=== PATIENT | female | born 1955 | race Caucasian/White ===

== ENCOUNTER 2020-02-28 15:48 | Emergency (ER) | payer MEDICARE ==
--- NOTE | 2020-02-28 16:07 | ERPHSYRPT ---
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 denies hitting head or LOC. no blood thinners. noted abrasions to L elbow and L knee that are not bleeding. rates 1/10 pain when ambu lating. ambulates with limp to room. A&Ox4. Allergies/Adverse Reactions: Penicillins Allergy (Mild, Verified 02/28/20 16:05) Rash Home Medications: Losartan/Hydrochlorothiazide [Losartan-Hctz 50-12.5 mg Tab] 1 each PO DAILY 11/22/19 [History] Levothyroxine Sodium [Synthroid] 25 mcg PO DAILY 01/08/20 [History] Hx Tetanus, Diphtheria Vaccination/Date Given: No Hx Influenza Vaccination/Date Given: No Hx Pneumococcal Vaccination/Date Given: No Immunizations Up to Date: No Travel Risk - International Travel Have you traveled outside of the country in past 3 weeks: No - Coronavirus Screening Are you exhibiting any of the following symptoms?: No Close contact with a COVID-19 positive Pt in past 14-21 Days: No - Past Medical History Pertinent Past Medical History: Yes Neurological History: No Pertinent History ENT History: No Pertinent History Cardiac History: Hypertension Respiratory History: No Pertinent History Endocrine Medical History: Diabetes Type II, Other Musculoskeletal History: No Pertinent History GI Medical History: Hernia History: No Pertinent History Psycho-Social History: No Pertinent History Female Reproductive Disorders: No Pertinent History Other Medical History: 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 Pt states she is "prediabetic" states a hx of GERD but currently doesn't have any difficulty and not taking any medications. - Past Surgical History Past Surgical History: Yes Neuro Surgical History: No Pertinent History Cardiac: No Pertinent History Respiratory: No Pertinent History Gastrointestinal: No Pertinent History Genitourinary: No Pertinent History Musculoskeletal: Other Female Surgical History: Hysterectomy, Tubal Ligation Other Surgical History: states she has had "fatty tumors" removed from neck and back. Right foot surgery. Right side breast biopsy AUGUST 2019. - Social History Smoking Status: Never smoker Exposure to second hand smoke: No Drug Use: none Patient Lives Alone: Yes - Female History Hx Now: No - Nursing Vital Signs Nursing Vital Signs: Initial Vital Signs Temperature 98.1 F 02/28/20 15:57 Pulse Rate 99 H 09/30/20 15:57 Respiratory Rate 18 02/28/20 15:57 Blood Pressure 163/95 02/28/20 15:57 O2 Sat by Pulse Oximetry 99 02/28/20 15:57 Pain Scale Pain Intensity 1 - Physical Exam SpO2: 99 Ordered Tests: Active Orders 24 hr Category Date Time Status Jair Bandage Application -[facility] STAT Care 02/28/20 17:05 Active Wound Care STAT Care 02/28/20 17:01 Active KNEE (3 VIEWS) Stat Exams 02/28/20 16:35 Completed - Departure Departure Disposition: Home Clinical Impression: Contusion, knee Qualifiers: Encounter type: initial encounter Laterality: left Qualified Code(s): S80.02XA - Contusion of left knee, initial encounter Condition: Stable Critical Care Time: No Referrals: EILEEN HASSAN MD [Primary Care Provider] - Instructions: Contusion (DC) Additional Instructions: Jair wrap for knee. Elevate, ice, pain med. as needed, activity as tolerated, recheck if not better.
--- NOTE | 2020-02-28 16:57 | XRAY ---
Indication: Pain following fall. Comparison: None 3 view right knee demonstrates mild anterior soft tissue swelling/laceration, mild osteopenia, mild/moderate tricompartmental degenerative changes greatest medial compartment, and minimal vascular calcifications. No other bony, articular, or soft tissue abnormalities.
[2020-02-28 17:12] VITALS: BP 152/85; PULSE 92
[2020-02-28 17:14] VITALS: O2SAT 99
== END 2020-02-28 17:23 | disposition home or self-care (01) ==
LOC: ED 15:48
DX: S80.02XA Contusion of left knee, initial encounter (principal); M25.562 Pain in left knee; M25.522 Pain in left elbow; S50.312A Abrasion of left elbow, initial encounter; S80.212A Abrasion, left knee, initial encounter; X58.XXXA Exposure to other specified factors, initial encounter; Y93.9 Activity, unspecified; Z79.899 Other long term (current) drug therapy; E11.9 Type 2 diabetes mellitus without complications; K21.9 Gastro-esophageal reflux disease without esophagitis
CPT/HCPCS: 73562; 99284

== ENCOUNTER 2021-04-20 14:35 | Emergency (ER) | payer MEDICARE ==
--- NOTE | 2021-04-20 15:07 | ERPHSYRPT ---
- History of Present Illness Time Seen by Provider: 04/20/21 14:37 Source: patient Exam Limitations: no limitations Patient Subjective Stated Complaint: R foot pain Triage Nursing Assessment: pt to ED c/o R foot pain r/t trip in her yard a couple days ago. states she did not feel pain at that time but the next day pain began. rates 10/10 at standing position and when weight bearing. denies pain at rest. has had surgery on this foot in 1998 and reports some intermittent problems with it since then. Physician History: 65 years old morbidly obese female presented in the ER with chief complaint of right foot pain sudden onset after she accidentally twisted while walking and later on started to have swelling and pain on the medial aspect of proximal foot making it difficult to ambulate. Moderate intensity sharp pain, partial relief with taking ibuprofen. Does report having surgical procedure done in the same foot long time ago. No injury anywhere else. No numbness tingling in the toes. No ankle pain. Method of Injury: twisted Occurred: yesterday Quality: sharpness Severity of Pain-Max: moderate Severity of Pain-Current: moderate Lower Extremities Pain: foot: right Modifying Factors: Improves With: immobilization. Worsens With: movement Associated Symptoms: unable to bear weight Allergies/Adverse Reactions: Penicillins Allergy (Mild, Verified 04/20/21 14:45) Rash Home Medications: Losartan/Hydrochlorothiazide [Losartan-Hctz 50-12.5 mg Tab] 1 each PO DAILY 11/22/19 [History] Levothyroxine Sodium [Synthroid] 25 mcg PO DAILY 01/08/20 [History] Hx Tetanus, Diphtheria Vaccination/Date Given: Yes Hx Influenza Vaccination/Date Given: No Hx Pneumococcal Vaccination/Date Given: No Immunizations Up to Date: No Travel Risk - International Travel Have you traveled outside of the country in past 3 weeks: No - Coronavirus Screening Are you exhibiting any of the following symptoms?: No Close contact with a COVID-19 positive Pt in past 14-21 Days: No - Vaccine Status Have you recieved a Covid-19 vaccination: No - Review of Systems Constitutional: No Symptoms Respiratory: No Symptoms Cardiac: No Symptoms Abdominal/Gastrointestinal: No Symptoms Genitourinary Symptoms: No Symptoms Musculoskeletal: Injury, Joint Pain Skin: No Symptoms Neurological: No Symptoms Psychological: No Symptoms Endocrine: No Symptoms - Past Medical History Pertinent Past Medical History: Yes Neurological History: No Pertinent History ENT History: No Pertinent History Cardiac History: Hypertension Respiratory History: No Pertinent History Endocrine Medical History: Diabetes Type II, Other Musculoskeletal History: No Pertinent History GI Medical History: Hernia History: No Pertinent History Psycho-Social History: No Pertinent History Female Reproductive Disorders: No Pertinent History Other Medical History: 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 Pt states she is "prediabetic" states a hx of GERD but currently doesn't have any difficulty and not taking any medications. - Past Surgical History Past Surgical History: Yes Neuro Surgical History: No Pertinent History Cardiac: No Pertinent History Respiratory: No Pertinent History Gastrointestinal: No Pertinent History Genitourinary: No Pertinent History Musculoskeletal: Other Female Surgical History: Hysterectomy, Tubal Ligation Other Surgical History: states she has had "fatty tumors" removed from neck and back. Right foot surgery. Right side breast biopsy AUGUST 2019. - Social History Smoking Status: Never smoker Exposure to second hand smoke: No Drug Use: none Patient Lives Alone: Yes - Female History Hx Now: No - Nursing Vital Signs Nursing Vital Signs: Initial Vital Signs Temperature 97.7 F 04/20/21 14:41 Pulse Rate 73 04/20/21 14:41 Respiratory Rate 19 04/20/21 14:41 O2 Sat by Pulse Oximetry 96 04/20/21 14:41 Pain Scale Pain Intensity 0 - Physical Exam General Appearance: no apparent distress, alert Neck Exam: normal inspection, full range of motion Cardiovascular/Respiratory Exam: normal breath sounds, regular rate/rhythm Legs Exam: bilateral leg: non-tender, normal inspection, normal range of motion, no evidence of injury Knees Exam: bilateral knee: non-tender, normal inspection, normal range of motion Ankle Exam: bilateral ankle: non-tender, normal inspection, normal range of motion Foot Exam: right foot: bone tenderness (Right medial hindfoot with soft tissue swelling and tenderness. No significant medial malleolar tenderness), limited range of motion, pain, soft tissue tenderness, swelling, left foot: non-tender, normal inspection, normal range of motion, no evidence of injury Neuro/Tendon Exam: normal sensation, normal motor functions Mental Status Exam: alert, oriented x 3, cooperative Skin Exam: normal color SpO2 Interpretation: normal SpO2: 96 O2 Delivery: Room Air Ordered Tests: Active Orders 24 hr Category Date Time Status FOOT (MINIMUM 3 VIEWS) Stat Exams 04/20/21 Ordered - Progress Progress: unchanged Progress Note: 04/20/21 she is offered pain medications which she refused. X-rays did not reveal any obvious fracture dislocation reviewed by me, official report is pending. Placed in walking boot, weightbearing as tolerated, Tylenol as needed and outpatient podiatry follow-up. Counseled pt/family regarding: diagnosis, need for follow-up, rad results - Departure Departure Disposition: Home Clinical Impression: Sprain of foot, right Qualifiers: Encounter type: initial encounter Qualified Code(s): S93.601A - Unspecified sprain of right foot, initial encounter Condition: Stable Critical Care Time: No Referrals: EILEEN HASSAN MD [Primary Care Provider] - Follow Up with PCP/3 days HARDY BURTON DPM [ACTIVE STAFF] - Follow up/PCP as directed (Call tomorrow for appointment for reevaluation) Instructions: Foot Sprain (DC) Additional Instructions: Keep it elevated, weightbearing only as tolerated. Intermittent ice. Follow-up with podiatry for reevaluation tomorrow. Take Tylenol as needed for pain.
--- NOTE | 2021-04-20 19:00 | XRAY ---
Indication: Pain following fall. Comparison: None 3 nonweightbearing views right foot demonstrate mild osteopenia, old 1st metatarsal bunionectomy with K wire, tiny heel spurs, mild medial ankle soft tissue swelling, and tiny lower leg vascular calcifications. No other bony, articular, or soft tissue abnormalities.
[2021-04-21 17:08] VITALS: PULSE 73; O2SAT 96
== END 2021-04-20 16:25 | disposition home or self-care (01) ==
LOC: ED 14:35
DX: S93.601A Unspecified sprain of right foot, initial encounter (principal); X50.1XXA Overexertion from prolonged static or awkward postures, initial encounter; Y92.007 Garden or yard of unspecified non-institutional (private) residence as the place of occurrence of the external cause; E66.01 Morbid (severe) obesity due to excess calories; I10 Essential (primary) hypertension; E11.8 Type 2 diabetes mellitus with unspecified complications
CPT/HCPCS: 73630; 99283

== ENCOUNTER 2022-12-29 23:47 | Emergency (ER) | payer MEDICARE ==
--- NOTE | 2022-12-30 00:25 | ERPHSYRPT ---
- History of Present Illness Time Seen by Provider: 12/30/22 00:23 Source: patient Exam Limitations: no limitations Patient Subjective Stated Complaint: pt states "I feel shakey and I don't feel good since wednesday." Triage Nursing Assessment: pt ambulatory to bed by self, pt alert and oriented x3, skin pwd, pt c/o generalized complaints. pt states she feel shaky since wednesday and believes her fsbs is high. pt took fsbs at home and was 144 and fsbs in ER during triage was 124. pt has hx of HTN and states she is prediabetic. Physician History: Patient is a 67-year-old female presents to our ED for evaluation of feeling tremulous. Patient states she feels as though "my body is shaking on the inside". Patient states she felt similarly when her thyroid levels were abnormal. Patient has history of hypothyroidism. Patient was started on Synthroid. Patient was found to be supratherapeutic on Synthroid. Synthroid has been discontinued for approximately 3 months at this point per patient. Patient denies pain. No chest pain or shortness of breath no nausea vomiting or diaphoresis. Symptoms are mild to moderate in intensity. No specific worsening improving factors. Daughter at bedside. They voiced no other complaints or concerns at this time. Portions of this note were created with voice recognition technology. There may be grammatical, spelling, punctuation or sound alike errors Timing/Duration: day(s) (2 days) Severity: moderate Modifying Factors: Improves With: nothing Associated Symptoms: denies symptoms Allergies/Adverse Reactions: lisinopril Allergy (Mild, Verified 12/30/22 00:22) Penicillins Allergy (Mild, Verified 04/20/21 14:45) Rash Home Medications: Losartan/Hydrochlorothiazide [Losartan-Hctz 50-12.5 mg Tab] 1 each PO DAILY 11/22/19 [History] Hx Tetanus, Diphtheria Vaccination/Date Given: No Hx Influenza Vaccination/Date Given: No Hx Pneumococcal Vaccination/Date Given: No Immunizations Up to Date: No Travel Risk - International Travel Have you traveled outside of the country in past 3 weeks: No - Coronavirus Screening Are you exhibiting any of the following symptoms?: No Close contact with a COVID-19 positive Pt in past 14-21 Days: No - Vaccine Status Have you recieved a Covid-19 vaccination: No - Review of Systems Constitutional: No Symptoms, No Fever, No Chills Eyes: No Symptoms Ears, Nose, & Throat: No Symptoms Respiratory: No Symptoms, No Cough, No Dyspnea Cardiac: No Symptoms, No Chest Pain, No Edema, No Syncope Abdominal/Gastrointestinal: No Symptoms, No Abdominal Pain, No Nausea, No Vomiting, No Diarrhea Genitourinary Symptoms: No Symptoms, No Dysuria Musculoskeletal: No Symptoms, No Back Pain, No Neck Pain Skin: No Symptoms, No Rash Neurological: No Symptoms, No Dizziness, No Focal Weakness, No Sensory Changes Psychological: No Symptoms Endocrine: No Symptoms Hematologic/Lymphatic: No Symptoms Immunological/Allergic: No Symptoms All Other Systems: Reviewed and Negative - Past Medical History Pertinent Past Medical History: Yes Neurological History: No Pertinent History ENT History: No Pertinent History Cardiac History: Hypertension Respiratory History: No Pertinent History Endocrine Medical History: Diabetes Type II, Other Musculoskeletal History: No Pertinent History GI Medical History: Hernia History: No Pertinent History Psycho-Social History: No Pertinent History Female Reproductive Disorders: No Pertinent History Other Medical History: 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 Pt states she is "prediabetic" states a hx of GERD but currently doesn't have any difficulty and not taking any medications. - Past Surgical History Past Surgical History: Yes Neuro Surgical History: No Pertinent History Cardiac: No Pertinent History Respiratory: No Pertinent History Gastrointestinal: No Pertinent History Genitourinary: No Pertinent History Musculoskeletal: Orthopedic Surgery, Other Female Surgical History: Hysterectomy, Tubal Ligation Other Surgical History: states she has had "fatty tumors" removed from neck and back. Right foot surgery. Right side breast biopsy AUGUST 2019. - Social History Smoking Status: Former smoker Exposure to second hand smoke: No Drug Use: none Patient Lives Alone: Yes - Nursing Vital Signs Nursing Vital Signs: Initial Vital Signs Temperature 97.3 F 12/30/22 00:12 Pulse Rate 101 H 12/30/22 00:12 Respiratory Rate 18 12/30/22 00:12 Blood Pressure 164/85 12/30/22 00:12 O2 Sat by Pulse Oximetry 95 12/30/22 00:12 Pain Scale Pain Intensity 0 - Physical Exam General Appearance: no apparent distress, alert Eye Exam: PERRL/EOMI, eyes nml inspection Ears, Nose, Throat Exam: normal ENT inspection, TMs normal, pharynx normal, moist mucous membranes Neck Exam: normal inspection, non-tender, supple, full range of motion Respiratory Exam: normal breath sounds, lungs clear, airway intact, No respiratory distress Cardiovascular Exam: regular rate/rhythm, normal heart sounds, normal peripheral pulses Gastrointestinal/Abdomen Exam: soft, normal bowel sounds, No tenderness, No mass Back Exam: normal inspection, normal range of motion, No CVA tenderness, No vertebral tenderness Extremity Exam: normal inspection, normal range of motion, pelvis stable Neurologic Exam: alert, oriented x 3, cooperative, normal mood/affect, nml cerebellar function, nml station & gait, sensation nml, No motor deficits Skin Exam: normal color, warm, dry, No rash Lymphatic Exam: No adenopathy SpO2 Interpretation: normal SpO2: 95 O2 Delivery: Room Air - Course Nursing assessment & vital signs reviewed: Yes Ordered Tests: Active Orders 24 hr Category Date Time Status CBC W DIFF Stat Lab 12/30/22 00:35 Completed CMP Stat Lab 12/30/22 00:35 Completed FREE TRIODOTHYRONINE Stat Lab 12/30/22 00:00 Completed POCT GLUCOSE Stat Lab 12/30/22 00:05 Completed TROPONIN Q4H Lab 12/30/22 00:35 Completed TROPONIN Q4H Lab 12/30/22 05:04 Completed TROPONIN Q4H Lab 12/30/22 08:30 Ordered TSH [TSH, 3RD Generation] Stat Lab 12/30/22 00:35 Completed UA W/RFX UR CULTURE Stat Lab 12/30/22 00:19 Completed Lab/Rad Data: Laboratory Result Diagrams 12/30/22 00:35 12/30/22 00:35 Laboratory Results 12/30/22 12/30/22 12/30/22 Range/Units 05:04 00:35 00:35 WBC (4.0-10.5) x10^3/uL RBC (4.1-5.4) x10^6/uL Hgb (12.0-16.0) g/dL Hct (35-47) % MCV (78-100) fL MCH (26-32) pg MCHC (32-36) g/dL RDW (11.5-14.0) % Plt Count (150-450) x10^3/uL MPV (7.5-11.0) fL Gran % (36.0-66.0) % Immature Gran % (Auto) (0.00-0.4) % Nucleat RBC Rel Count (0.00-0.1) % Eos # (Auto) (0-0.5) x10^3/uL Immature Gran # (Auto) (0.00-0.03) x10^3u/L Absolute Lymphs (auto) (1.0-4.6) x10^3/uL Absolute Monos (auto) (0.0-1.3) x10^3/uL Absolute Nucleated RBC (0.00-0.01) x10^3u/L Lymphocytes % (24.0-44.0) % Monocytes % (0.0-12.0) % Eosinophils % (0.00-5.0) % Basophils % (0.0-0.4) % Absolute Granulocytes (1.4-6.9) x10^3/uL Basophils # (0-0.4) x10^3/uL Sodium (137-145) mmol/L Potassium (3.5-5.1) mmol/L Chloride (98-107) mmol/L Carbon Dioxide (22-30) mmol/L Anion Gap (5-15) MEQ/L BUN (7-17) mg/dL Creatinine (0.52-1.04) mg/dL Estimated GFR ML/MIN Glucose (74-106) mg/dL POC Glucometer (74 to 106) mg/dL Calcium (8.4-10.2) mg/dL Total Bilirubin (0.2-1.3) mg/dL AST (14-36) U/L ALT (0-35) U/L Alkaline Phosphatase (38-126) U/L Troponin I < 0.012 < 0.012 (0.000-0.034) ng/mL Serum Total Protein (6.3-8.2) g/dL Albumin (3.5-5.0) g/dL Free T4 (0.78-2.19) ng/dL Free T3 pg/mL (2.77-5.27) pg/mL TSH 3rd Generation < 0.015 L (0.47-4.68) mIU/L Urine Color (Yellow) Urine Appearance (Clear) Urine pH (4.6-8.0) Ur Specific Ventress (1.005-1.030) Urine Protein (Negative) Urine Glucose (UA) (Negative) mg/dL Urine Ketones (Negative) Urine Blood (Negative) Urine Nitrite (Negative) Urine Bilirubin (Negative) Urine Urobilinogen (0.2) mg/dL Ur Leukocyte Esterase (Negative) U Hyaline Cast (Auto) (0-2) /LPF Urine Microscopic RBC (0-5) /HPF Urine Microscopic WBC (0-5) /HPF Ur Epithelial Cells (None Seen) /HPF Urine Bacteria (None Seen) /HPF Urine Culture Reflexed (NO) 12/30/22 12/30/22 12/30/22 Range/Units 00:35 00:35 00:19 WBC 5.2 (4.0-10.5) x10^3/uL RBC 4.82 (4.1-5.4) x10^6/uL Hgb 13.6 (12.0-16.0) g/dL Hct 42.7 (35-47) % MCV 88.6 (78-100) fL MCH 28.2 (26-32) pg MCHC 31.9 L (32-36) g/dL RDW 12.8 (11.5-14.0) % Plt Count 181 (150-450) x10^3/uL MPV 10.3 (7.5-11.0) fL Gran % 56.7 (36.0-66.0) % Immature Gran % (Auto) 0.2 (0.00-0.4) % Nucleat RBC Rel Count 0.0 (0.00-0.1) % Eos # (Auto) 0.15 (0-0.5) x10^3/uL Immature Gran # (Auto) 0.01 (0.00-0.03) x10^3u/L Absolute Lymphs (auto) 1.59 (1.0-4.6) x10^3/uL Absolute Monos (auto) 0.46 (0.0-1.3) x10^3/uL Absolute Nucleated RBC 0.00 (0.00-0.01) x10^3u/L Lymphocytes % 30.9 (24.0-44.0) % Monocytes % 8.9 (0.0-12.0) % Eosinophils % 2.9 (0.00-5.0) % Basophils % 0.4 (0.0-0.4) % Absolute Granulocytes 2.92 (1.4-6.9) x10^3/uL Basophils # 0.02 (0-0.4) x10^3/uL Sodium 139 (137-145) mmol/L Potassium 3.7 (3.5-5.1) mmol/L Chloride 104 (98-107) mmol/L Carbon Dioxide 27 (22-30) mmol/L Anion Gap 11.5 (5-15) MEQ/L BUN 18 H (7-17) mg/dL Creatinine 0.70 (0.52-1.04) mg/dL Estimated GFR > 60.0 ML/MIN Glucose 124 H (74-106) mg/dL POC Glucometer (74 to 106) mg/dL Calcium 9.1 (8.4-10.2) mg/dL Total Bilirubin 0.40 (0.2-1.3) mg/dL AST 22 (14-36) U/L ALT 24 (0-35) U/L Alkaline Phosphatase 123 (38-126) U/L Troponin I (0.000-0.034) ng/mL Serum Total Protein 6.7 (6.3-8.2) g/dL Albumin 3.8 (3.5-5.0) g/dL Free T4 (0.78-2.19) ng/dL Free T3 pg/mL (2.77-5.27) pg/mL TSH 3rd Generation (0.47-4.68) mIU/L Urine Color Yellow (Yellow) Urine Appearance Clear (Clear) Urine pH 6.0 (4.6-8.0) Ur Specific Ventress <=1.005 (1.005-1.030) Urine Protein Negative (Negative) Urine Glucose (UA) Negative (Negative) mg/dL Urine Ketones Negative (Negative) Urine Blood Negative (Negative) Urine Nitrite Negative (Negative) Urine Bilirubin Negative (Negative) Urine Urobilinogen 0.2 (0.2) mg/dL Ur Leukocyte Esterase Small A (Negative) U Hyaline Cast (Auto) NONE SEEN (0-2) /LPF Urine Microscopic RBC 0-2 (0-5) /HPF Urine Microscopic WBC 0-2 (0-5) /HPF Ur Epithelial Cells None Seen (None Seen) /HPF Urine Bacteria None Seen (None Seen) /HPF Urine Culture Reflexed NO (NO) 0812/30/22 12/30/22 Range/Units 00:05 00:00 00:00 WBC (4.0-10.5) x10^3/uL RBC (4.1-5.4) x10^6/uL Hgb (12.0-16.0) g/dL Hct (35-47) % MCV (78-100) fL MCH (26-32) pg MCHC (32-36) g/dL RDW (11.5-14.0) % Plt Count (150-450) x10^3/uL MPV (7.5-11.0) fL Gran % (36.0-66.0) % Immature Gran % (Auto) (0.00-0.4) % Nucleat RBC Rel Count (0.00-0.1) % Eos # (Auto) (0-0.5) x10^3/uL Immature Gran # (Auto) (0.00-0.03) x10^3u/L Absolute Lymphs (auto) (1.0-4.6) x10^3/uL Absolute Monos (auto) (0.0-1.3) x10^3/uL Absolute Nucleated RBC (0.00-0.01) x10^3u/L Lymphocytes % (24.0-44.0) % Monocytes % (0.0-12.0) % Eosinophils % (0.00-5.0) % Basophils % (0.0-0.4) % Absolute Granulocytes (1.4-6.9) x10^3/uL Basophils # (0-0.4) x10^3/uL Sodium (137-145) mmol/L Potassium (3.5-5.1) mmol/L Chloride (98-107) mmol/L Carbon Dioxide (22-30) mmol/L Anion Gap (5-15) MEQ/L BUN (7-17) mg/dL Creatinine (0.52-1.04) mg/dL Estimated GFR ML/MIN Glucose (74-106) mg/dL POC Glucometer 125 H (74 to 106) mg/dL Calcium (8.4-10.2) mg/dL Total Bilirubin (0.2-1.3) mg/dL AST (14-36) U/L ALT (0-35) U/L Alkaline Phosphatase (38-126) U/L Troponin I (0.000-0.034) ng/mL Serum Total Protein (6.3-8.2) g/dL Albumin (3.5-5.0) g/dL Free T4 2.34 H (0.78-2.19) ng/dL Free T3 pg/mL 9.24 H (2.77-5.27) pg/mL TSH 3rd Generation (0.47-4.68) mIU/L Urine Color (Yellow) Urine Appearance (Clear) Urine pH (4.6-8.0) Ur Specific Ventress (1.005-1.030) Urine Protein (Negative) Urine Glucose (UA) (Negative) mg/dL Urine Ketones (Negative) Urine Blood (Negative) Urine Nitrite (Negative) Urine Bilirubin (Negative) Urine Urobilinogen (0.2) mg/dL Ur Leukocyte Esterase (Negative) U Hyaline Cast (Auto) (0-2) /LPF Urine Microscopic RBC (0-5) /HPF Urine Microscopic WBC (0-5) /HPF Ur Epithelial Cells (None Seen) /HPF Urine Bacteria (None Seen) /HPF Urine Culture Reflexed (NO) - Progress Progress: improved Progress Note: Case discussed with hospitalist who advised transfer to an institution with endocrinology. I spoke to at 2:20 AM. Case discussed with Dr. Oliver hospitalist at [address] at 3:[address] Oliver advised consult taking with endocrine first before excepting. I spoke to Dr. Perez intravenous therapy nurse at 3:19 AM who accepts transfer. We are currently arranging transport to [facility] and [address] [place] [address]. Patient agrees to transfer. 12/30/22 03:51 Patient is a 67-year-old female presents to our ED for evaluation of tremors. Physical exam unremarkable. Work-up reveals hyper thyroidism. CBC CMP essentially unremarkable. TSH is low. Troponin negative x2. UA negative. Free T3 free T4 elevated. Patient will be transferred to [facility] [address]. We are currently awaiting transport. Patient stable. No complaints overnight. Although patient has had hypothyroidism for 3 months, patient is not becoming somewhat more symptomatic. Vitals stable not tachycardic. Complexity of problems addressed is moderate acute complicated No critical care time Complex of data reviewed and analyzed is extensive. Test ordered. Test reviewed. Clinical correlation made between findings and history and physical exam. Case discussed with hospitalist and intravenous therapy nurse from [address] No specific recommendations while patient is in our care. As patient's vitals are stable patient is not tachycardic or hypertensive. However patient will be transferred for higher level of care. Risk of complication and or risk of morbidity/mortality of patient management is high. Patient will require hospitalization/transfer to higher level of care. Plan of care established for shared decision making. Vital stable at this time. Time of discharge patient is approximately 15 minutes. Patient voices no other complaints or concerns at this time. They are currently awaiting transfer. Patient endorsed to Dr. Gabriel at approximately 7 AM to oversee the transport process. Patient stable she has no complaints at this time. Portions of this note were created with voice recognition technology. There may be grammatical, spelling, punctuation or sound alike errors. 12/30/22 06:45 12/30/22 06:50 Counseled pt/family regarding: lab results, diagnosis - Departure Departure Disposition: Home Clinical Impression: Hyperthyroidism Condition: Stable Critical Care Time: No Referrals: EILEEN HASSAN MD [Primary Care Provider] - Follow up/PCP as directed Additional Instructions: Discharge/Care Plan FERMIN GUAJARDOE was seen on 12/30/22 in the Emergency Room. The patient was counseled regarding Diagnosis,Lab results, Imaging studies, need for follow up and when to return to the Emergency Room. Prescriptions given: Discharge Note I have spoken with the patient and/or caregivers. I have explained the patient's condition, diagnosis and treatment plan based on the information available to me at this time. I have answered the patient's and/or caregiver's questions and addressed any concerns. The patient and/or caregivers have as good understanding of the patient's diagnosis, condition and treatment plan as can be expected at this point. The vital signs have been stable. The patient's condition is stable and appropriate for discharge from the emergency department. The patient will pursue further outpatient evaluation with the primary care physician or other designated or consulting physician as outlined in the discharge instructions. The patient and/or caregivers are agreeable to this plan of care and follow-up instructions have been explained in detail. The patient and/or caregivers have received these instruction. The patient/and or caregivers are aware that any significant change in condition or worsening of symptoms should prompt an immediate return to this or the closest emergency department or call 911.
[2022-12-30 00:37] LABS: Absolute Neutrophil Ct (ANC) 2.92 x10^3/uL (1.4-6.9); BASOPHIL % 0.4 % (0.0-0.4); Basophil (Absolute #) 0.02 x10^3/uL (0-0.4); Eosinophil % 2.9 % (0.00-5.0); Eosinophil (Absolute #) 0.15 x10^3/uL (0-0.5); Hematocrit 42.7 % (35-47); Hemoglobin 13.6 g/dL (12.0-16.0); IMMATURE GRAN # 0.01 x10^3u/L (0.00-0.03); IMMATURE GRAN % 0.2 % (0.00-0.4); Lymphocyte (Absolute #) 1.59 x10^3/uL (1.0-4.6); Lymphocytes % 30.9 % (24.0-44.0); Mean Cell Volume 88.6 fL (78-100); Mean Corpuscular Hemoglobin 28.2 pg (26-32); Mean Corpuscular Hgb Concent. 31.9 g/dL (32-36); Mean Platelet Volume 10.3 fL (7.5-11.0); Monocyte (Absolute #) 0.46 x10^3/uL (0.0-1.3); Monocytes % 8.9 % (0.0-12.0); Neutrophil % 56.7 % (36.0-66.0); Platelet Count 181 x10^3/uL (150-450); Red Blood Count 4.82 x10^6/uL (4.1-5.4); Red Cell Distribution Width 12.8 % (11.5-14.0); White Blood Count 5.2 x10^3/uL (4.0-10.5)
[2022-12-30 00:43] LABS: Appearance Clear (Clear); Bacteria None Seen /HPF (None Seen); Bilirubin Negative (Negative); Blood Negative (Negative); Epithelial Cells None Seen /HPF (None Seen); Glucose, Urine Negative (Negative); Hyaline Casts NONE SEEN /LPF (0-2); Ketones Negative (Negative); Leukocyte Esterase Small (Negative); Nitrite Negative (Negative); Protein,Urine Dip Negative (Negative); RBC 0-2 /HPF (0-5); Specific Gravity <=1.005 (1.005-1.030); Urobilinogen 0.2 mg/dL (0.2); WBC 0-2 /HPF (0-5)
[2022-12-30 00:44] LABS: ADD URINE CULTURE? NO (NO)
[2022-12-30 00:51] LABS: ALBUMIN 3.8 g/dL (3.5-5.0); ALKALINE PHOSPHATASE 123 U/L (38-126); ANION GAP 11.5 MEQ/L (5-15); BLOOD UREA NITROGEN 18 mg/dL (7-17); CHLORIDE 104 mmol/L (98-107); Calcium 9.1 mg/dL (8.4-10.2); Carbon Dioxide 27 mmol/L (22-30); EST GLOMERULAR FILTRATION RATE > 60.0 ML/MIN; Glucose 124 mg/dL (74-106); Potassium 3.7 mmol/L (3.5-5.1); SGOT/AST 22 U/L (14-36); SGPT/ALT 24 U/L (0-35); SODIUM 139 mmol/L (137-145); Total Protein 6.7 g/dL (6.3-8.2)
[2022-12-30 07:44] VITALS: RESP 18; TEMP 97.2; O2SAT 97
[2022-12-30] MEDS: hydroDIURIL 25 MG PO ONE (09:15)
[2022-12-30] MEDS: Cozaar 50 MG PO ONE (09:15)
[2022-12-30 09:45] VITALS: BP 161/62; PULSE 74
[2022-12-31] MEDS ORDERED: Cozaar 50 MG PO SCH (09:15)
[2022-12-31] MEDS ORDERED: hydroDIURIL 25 MG PO SCH (09:15)
== END 2022-12-30 09:52 | disposition home or self-care (01) ==
LOC: ED 23:47
DX: E05.90 Thyrotoxicosis, unspecified without thyrotoxic crisis or storm (principal); R25.1 Tremor, unspecified; I10 Essential (primary) hypertension; E11.9 Type 2 diabetes mellitus without complications; Z79.899 Other long term (current) drug therapy; Z28.310 Unvaccinated for COVID-19
CPT/HCPCS: 36415; 80053; 81001; 82947; 84439; 84443; 84481; 84484; 85025; 99284; A9270-GY

== ENCOUNTER 2023-01-08 22:45 | Emergency (ER) | payer MEDICARE ==
[2023-01-08 23:01] VITALS: TEMP 98.2
[2023-01-08 23:28] LABS: Absolute Neutrophil Ct (ANC) 3.89 x10^3/uL (1.4-6.9); BASOPHIL % 0.5 % (0.0-0.4); Basophil (Absolute #) 0.03 x10^3/uL (0-0.4); Eosinophil % 2.5 % (0.00-5.0); Eosinophil (Absolute #) 0.16 x10^3/uL (0-0.5); Hematocrit 40.9 % (35-47); Hemoglobin 13.4 g/dL (12.0-16.0); IMMATURE GRAN # 0.01 x10^3u/L (0.00-0.03); IMMATURE GRAN % 0.2 % (0.00-0.4); Lymphocyte (Absolute #) 1.84 x10^3/uL (1.0-4.6); Lymphocytes % 28.2 % (24.0-44.0); Mean Cell Volume 85.9 fL (78-100); Mean Corpuscular Hemoglobin 28.2 pg (26-32); Mean Corpuscular Hgb Concent. 32.8 g/dL (32-36); Mean Platelet Volume 11.8 fL (7.5-11.0); Monocytes % 9.2 % (0.0-12.0); Neutrophil % 59.4 % (36.0-66.0); Platelet Count 192 x10^3/uL (150-450); Red Blood Count 4.76 x10^6/uL (4.1-5.4); Red Cell Distribution Width 13.1 % (11.5-14.0); White Blood Count 6.5 x10^3/uL (4.0-10.5)
[2023-01-08 23:52] LABS: ALBUMIN 3.8 g/dL (3.5-5.0); ALKALINE PHOSPHATASE 158 U/L (38-126); ANION GAP 12.9 MEQ/L (5-15); BLOOD UREA NITROGEN 16 mg/dL (7-17); CHLORIDE 105 mmol/L (98-107); Calcium 9.3 mg/dL (8.4-10.2); Carbon Dioxide 25 mmol/L (22-30); Creatinine 1 0.56 mg/dL (0.52-1.04); EST GLOMERULAR FILTRATION RATE > 60.0 ML/MIN; Glucose 116 mg/dL (74-106); NT PRO BNPII 596 pg/mL (<300); Potassium 3.6 mmol/L (3.5-5.1); SGOT/AST 23 U/L (14-36); SGPT/ALT 24 U/L (0-35); SODIUM 139 mmol/L (137-145); Total Protein 6.8 g/dL (6.3-8.2)
--- NOTE | 2023-01-09 00:18 | ERPHSYRPT ---
- History of Present Illness Time Seen by Provider: 01/09/23 00:13 Source: patient Exam Limitations: no limitations Patient Subjective Stated Complaint: pt states shortness of breath Triage Nursing Assessment: pt came into the er via wheelchair; pt is axo x4; c/o sob; no respiratory distress present; pt is talking in full sentences; skin PDW; clear lung sounds in all lobes; hypertensive Physician History: Patient is a 67-year-old female with a history of hyperthyroidism presents to our ED for evaluation of feeling anxious jittery and slight shortness of breath. Patient was in our ED recently for the same complaints. Work-up was negative. Patient was diagnosed with hypothyroidism. Patient currently seeing endo crinologist. Patient now on propranolol for tachycardia and symptom relief. Patient otherwise has no complaints. Symptoms are mild in intensity. No specific worsening improving factors. Patient otherwise feels well. She voices no other complaints or concerns at this time. Portions of this note were created with voice recognition technology. There may be grammatical, spelling, punctuation or sound alike errors Timing/Duration: today Severity: mild Modifying Factors: Improves With: nothing Associated Symptoms: denies symptoms Allergies/Adverse Reactions: lisinopril Allergy (Mild, Verified 01/08/23 22:46) Penicillins Allergy (Mild, Verified 01/08/23 22:46) Rash Home Medications: Losartan/Hydrochlorothiazide [Losartan-Hctz 50-12.5 mg Tab] 1 each PO DAILY 11/22/19 [History] Propranolol HCl 80 mg PO DAILY 01/08/23 [History] Hx Tetanus, Diphtheria Vaccination/Date Given: No Hx Influenza Vaccination/Date Given: No Hx Pneumococcal Vaccination/Date Given: No Travel Risk - International Travel Have you traveled outside of the country in past 3 weeks: No - Coronavirus Screening Are you exhibiting any of the following symptoms?: Yes Symptoms: Shortness of Breath Close contact with a COVID-19 positive Pt in past 14-21 Days: No - Vaccine Status Have you recieved a Covid-19 vaccination: No - Review of Systems Constitutional: No Symptoms Eyes: No Symptoms Ears, Nose, & Throat: No Symptoms Respiratory: No Symptoms Cardiac: No Symptoms Abdominal/Gastrointestinal: No Symptoms Genitourinary Symptoms: No Symptoms Musculoskeletal: No Symptoms Skin: No Symptoms Neurological: No Symptoms Psychological: No Symptoms Endocrine: No Symptoms Hematologic/Lymphatic: No Symptoms Immunological/Allergic: No Symptoms - Past Medical History Pertinent Past Medical History: Yes Neurological History: No Pertinent History ENT History: No Pertinent History Cardiac History: Hypertension Respiratory History: No Pertinent History Endocrine Medical History: Diabetes Type II, Other Musculoskeletal History: No Pertinent History GI Medical History: Hernia History: No Pertinent History Psycho-Social History: No Pertinent History Female Reproductive Disorders: No Pertinent History Other Medical History: 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 Pt states she is "prediabetic" states a hx of GERD but currently doesn't have any difficulty and not taking any medications. - Past Surgical History Past Surgical History: Yes Neuro Surgical History: No Pertinent History Cardiac: No Pertinent History Respiratory: No Pertinent History Gastrointestinal: No Pertinent History Genitourinary: No Pertinent History Musculoskeletal: Orthopedic Surgery, Other Female Surgical History: Hysterectomy, Tubal Ligation Other Surgical History: states she has had "fatty tumors" removed from neck and back. Right foot surgery. Right side breast biopsy AUGUST 2019. - Social History Smoking Status: Former smoker Exposure to second hand smoke: No Drug Use: none Patient Lives Alone: Yes - Nursing Vital Signs Nursing Vital Signs: Initial Vital Signs Temperature 98.2 F 01/08/23 22:46 Pulse Rate 83 01/08/23 22:46 Respiratory Rate 18 01/08/23 22:46 Blood Pressure 166/85 01/08/23 22:46 O2 Sat by Pulse Oximetry 96 01/08/23 22:46 Pain Scale Pain Intensity 0 - Physical Exam General Appearance: no apparent distress, alert Eye Exam: PERRL/EOMI, eyes nml inspection Ears, Nose, Throat Exam: normal ENT inspection, TMs normal, pharynx normal, moist mucous membranes Neck Exam: normal inspection, non-tender, supple, full range of motion Respiratory Exam: normal breath sounds, lungs clear, No respiratory distress Cardiovascular Exam: regular rate/rhythm, normal heart sounds, normal peripheral pulses Gastrointestinal/Abdomen Exam: soft, normal bowel sounds, No tenderness, No mass Back Exam: normal inspection, normal range of motion, No CVA tenderness, No vertebral tenderness Extremity Exam: normal inspection, normal range of motion, pelvis stable Neurologic Exam: alert, oriented x 3, cooperative, normal mood/affect, nml cerebellar function, nml station & gait, sensation nml, No motor deficits Skin Exam: normal color, warm, dry, No rash Lymphatic Exam: No adenopathy SpO2 Interpretation: normal SpO2: 97 O2 Delivery: Room Air - Course Nursing assessment & vital signs reviewed: Yes Ordered Tests: Active Orders 24 hr Category Date Time Status Mortgage Loan Originator STAT Care 01/08/23 23:08 Active EKG-ER Only STAT Care 01/08/23 23:07 Active IV Insertion STAT Care 01/08/23 23:07 Active Pulse Oximetry (ED) STAT Care 01/08/23 23:07 Active CHEST 1 VIEW (PORTABLE) Stat Exams 01/08/23 23:08 Taken CBC W DIFF Stat Lab 01/08/23 23:10 Completed CMP Stat Lab 01/08/23 23:10 Completed NT PRO BNPII Stat Lab 01/08/23 23:10 Completed TROPONIN Q4H Lab 01/08/23 23:10 Completed TROPONIN Q4H Lab 01/09/23 03:15 Ordered TROPONIN Q4H Lab 01/09/23 07:15 Ordered Lab/Rad Data: Laboratory Result Diagrams 01/08/23 23:10 01/08/23 23:10 Laboratory Results 01/08/23 01/08/23 01/08/23 Range/Units 23:10 23:10 23:10 WBC 6.5 (4.0-10.5) x10^3/uL RBC 4.76 (4.1-5.4) x10^6/uL Hgb 13.4 (12.0-16.0) g/dL Hct 40.9 (35-47) % MCV 85.9 (78-100) fL MCH 28.2 (26-32) pg MCHC 32.8 (32-36) g/dL RDW 13.1 (11.5-14.0) % Plt Count 192 (150-450) x10^3/uL MPV 11.8 H (7.5-11.0) fL Gran % 59.4 (36.0-66.0) % Immature Gran % (Auto) 0.2 (0.00-0.4) % Nucleat RBC Rel Count 0.0 (0.00-0.1) % Eos # (Auto) 0.16 (0-0.5) x10^3/uL Immature Gran # (Auto) 0.01 (0.00-0.03) x10^3u/L Absolute Lymphs (auto) 1.84 (1.0-4.6) x10^3/uL Absolute Monos (auto) 0.60 (0.0-1.3) x10^3/uL Absolute Nucleated RBC 0.00 (0.00-0.01) x10^3u/L Lymphocytes % 28.2 (24.0-44.0) % Monocytes % 9.2 (0.0-12.0) % Eosinophils % 2.5 (0.00-5.0) % Basophils % 0.5 (0.0-0.4) % Absolute Granulocytes 3.89 (1.4-6.9) x10^3/uL Basophils # 0.03 (0-0.4) x10^3/uL Sodium 139 (137-145) mmol/L Potassium 3.6 (3.5-5.1) mmol/L Chloride 105 (98-107) mmol/L Carbon Dioxide 25 (22-30) mmol/L Anion Gap 12.9 (5-15) MEQ/L BUN 16 (7-17) mg/dL Creatinine 0.56 (0.52-1.04) mg/dL Estimated GFR > 60.0 ML/MIN Glucose 116 H (74-106) mg/dL Calcium 9.3 (8.4-10.2) mg/dL Total Bilirubin 0.60 (0.2-1.3) mg/dL AST 23 (14-36) U/L ALT 24 (0-35) U/L Alkaline Phosphatase 158 H (38-126) U/L Troponin I < 0.012 (0.000-0.034) ng/mL NT-Pro-B Natriuret Pep 596 (<300) pg/mL Serum Total Protein 6.8 (6.3-8.2) g/dL Albumin 3.8 (3.5-5.0) g/dL - Progress Progress: improved Progress Note: Patient is 67-year-old female with known hyperthyroidism. Patient presents to our ED with complaints of feeling anxious. Patient complains of jittery feeling and fine tremors of her extremities. Patient was in our ED recently and had the same symptomology. Physical exam essentially nonremarkable. Patient conversant and in no distress. Work-up essentially nonremarkable. Patient will be discharged home. Patient agrees to follow-up with her primary care doctor within 48 hours for evaluation. She voices no other complaints or concerns at this time. Portions of this note were created with voice recognition technology. There may be grammatical, spelling, punctuation or sound alike errors Complexity of problems addressed is moderate acute complicated. No critical care time Complex of data reviewed and analyzed is moderate. Test ordered. Test reviewed and analyzed. Findings correlated clinically with history and physical exam. The results of our findings and clinical correlation dictated the disposition. Patient has no chest pain. rovider/doctor (not reported separately) Risk of complication and a risk of morbidity/mortality of patient management is low. No medications administered. No prescriptions provided. Patient will continue follow-up with her primary care provider and consumer affairs director. Vital stable. Time spent to discharge patient is approximately 10 minutes. Plan of care established for shared decision making. No social determinants of health present to impede follow-up. Patient voices no other complaints or concerns at this time. Portions of this note were created with voice recognition technology. There may be grammatical, spelling, punctuation or sound alike errors Counseled pt/family regarding: lab results, diagnosis, need for follow-up - Departure Departure Disposition: Home Clinical Impression: Shortness of breath, Hyperthyroidism Condition: Stable Critical Care Time: No Referrals: EILEEN HASSAN MD [Primary Care Provider] - Follow up/PCP as directed Additional Instructions: Discharge/Care Plan ENOCH GUAJARDOALLISON CASAREZ was seen on 01/09/23 in the Emergency Room. The patient was counseled regarding Diagnosis,Lab results, Imaging studies, need for follow up and when to return to the Emergency Room. Prescriptions given: Discharge Note I have spoken with the patient and/or caregivers. I have explained the patient's condition, diagnosis and treatment plan based on the information available to me at this time. I have answered the patient's and/or caregiver's questions and addressed any concerns. The patient and/or caregivers have as good understanding of the patient's diagnosis, condition and treatment plan as can be expected at this point. The vital signs have been stable. The patient's condition is stable and appropriate for discharge from the emergency department. The patient will pursue further outpatient evaluation with the primary care physician or other designated or consulting physician as outlined in the discharge instructions. The patient and/or caregivers are agreeable to this plan of care and follow-up instructions have been explained in detail. The patient and/or caregivers have received these instruction. The patient/and or caregivers are aware that any significant change in condition or worsening of symptoms should prompt an immediate return to this or the closest emergency department or call 911.
[2023-01-09 01:18] VITALS: BP 118/74; PULSE 74; RESP 16; O2SAT 98
--- NOTE | 2023-01-09 05:57 | XRAY ---
Indication: Short of breath. Comparison: March 10, 2022 Portable apical lordotic chest unchanged again demonstrating lingula subsegmental atelectasis. Remaining heart and lungs unremarkable. Bony thorax intact again with osteopenia and mild degenerative changes. No new/acute findings.
== END 2023-01-09 01:15 | disposition home or self-care (01) ==
LOC: ED 22:45
DX: R06.02 Shortness of breath (principal); E05.90 Thyrotoxicosis, unspecified without thyrotoxic crisis or storm; I10 Essential (primary) hypertension; E11.9 Type 2 diabetes mellitus without complications; Z79.899 Other long term (current) drug therapy; Z28.310 Unvaccinated for COVID-19
CPT/HCPCS: 36000; 36415; 71045; 80053; 83880; 84484; 85025; 93005; 93041; 94760; 99284

== ENCOUNTER 2024-01-15 14:59 | Emergency (ER) | payer MEDICARE ==
[2024-01-15 15:09] VITALS: RESP 18; TEMP 97.2
--- NOTE | 2024-01-15 15:37 | ERPHSYRPT ---
- History of Present Illness Time Seen by Provider: 01/15/24 15:12 Source: patient Exam Limitations: no limitations Patient Subjective Stated Complaint: pt sent here for ablnormal labs today, she had a 3 hour glucose test today and her bs was 46, Triage Nursing Assessment: pt alert, walked in, resp easy, skin w/d/p.she co feeling and litttle shaky but states she was nervous, she did eat after test and blood sugar now is 120 Physician History: 68 years old female with history of hypertension, hypothyroidism, prediabetic who had her routine lab work done this morning is sent in ER as her 3-hour glucose testing reading was 40. Patient reports she was fasting from 10 PM until this morning where she had her 3-hour glucose test done. Patient denies being feeling weak fatigued lethargic, diaphoretic or palpitations. She went home and did eat when she got a call about her low glucose. Patient's glucose on presentation in the ER is in 120s. She is not having any symptoms currently or even before when it was actually low. I have reviewed the lab work which is fairly unremarkable with her initial glucose in 116, A1c of 5.9 and on presentation in the ER glucose is 120s. I do not think patient needs any other workup in the ER and is recommended outpatient follow-up with her primary care and primary pedodontist. Discussed signs symptoms of hypoglycemia needing return to ER which she seems understanding. Allergies/Adverse Reactions: lisinopril Allergy (Mild, Verified 01/15/24 15:07) Penicillins Allergy (Mild, Verified 01/15/24 15:07) Rash Home Medications: Losartan/Hydrochlorothiazide [Losartan-Hctz 50-12.5 mg Tab] 1 each PO DAILY 11/22/19 [History] Propranolol HCl 80 mg PO DAILY 01/08/23 [History] Hx Tetanus, Diphtheria Vaccination/Date Given: No Hx Influenza Vaccination/Date Given: No Hx Pneumococcal Vaccination/Date Given: No Immunizations Up to Date: Yes Travel Risk - International Travel Have you traveled outside of the country in past 3 weeks: No - Emerging Infectious Disease Are you exhibiting symptoms associated with any current EIDs: No - Review of Systems Constitutional: No Symptoms Eyes: No Symptoms Ears, Nose, & Throat: No Symptoms Respiratory: No Symptoms Cardiac: No Symptoms Abdominal/Gastrointestinal: No Symptoms Genitourinary Symptoms: No Symptoms Musculoskeletal: No Symptoms Skin: No Symptoms Neurological: No Symptoms - Past Medical History Pertinent Past Medical History: Yes Neurological History: No Pertinent History ENT History: No Pertinent History Cardiac History: Hypertension Respiratory History: No Pertinent History Endocrine Medical History: Diabetes Type II, Other Musculoskeletal History: No Pertinent History GI Medical History: Hernia History: No Pertinent History Psycho-Social History: No Pertinent History Female Reproductive Disorders: No Pertinent History Other Medical History: 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 Pt states she is "prediabetic" states a hx of GERD but currently doesn't have any difficulty and not taking any medications. - Past Surgical History Past Surgical History: Yes Neuro Surgical History: No Pertinent History Cardiac: No Pertinent History Respiratory: No Pertinent History Gastrointestinal: No Pertinent History Genitourinary: No Pertinent History Musculoskeletal: Orthopedic Surgery, Other Female Surgical History: Hysterectomy, Tubal Ligation Other Surgical History: states she has had "fatty tumors" removed from neck and back. Right foot surgery. Right side breast biopsy AUGUST 2019. - Social History Smoking Status: Former smoker Exposure to second hand smoke: No Drug Use: none Patient Lives Alone: Yes - Social Determinants of Health Will the patient participate in the screening: Declined to provide - Nursing Vital Signs Nursing Vital Signs: Initial Vital Signs Temperature 97.2 F 01/15/24 15:08 Pulse Rate 83 01/15/24 15:08 Respiratory Rate 18 01/15/24 15:08 Blood Pressure 156/98 01/15/24 15:08 O2 Sat by Pulse Oximetry 97 01/15/24 15:08 Pain Scale Pain Intensity 0 - Physical Exam General Appearance: no apparent distress, alert Eye Exam: PERRL/EOMI Neck Exam: normal inspection, non-tender, full range of motion Respiratory Exam: normal breath sounds, lungs clear Cardiovascular Exam: regular rate/rhythm, normal heart sounds Gastrointestinal/Abdomen Exam: soft, normal bowel sounds, No tenderness Back Exam: normal inspection Neurologic Exam: alert, oriented x 3, cooperative, press officer II-XII nml as tested Skin Exam: normal color SpO2 Interpretation: normal SpO2: 97 O2 Delivery: Room Air Ordered Tests: Active Orders 24 hr Category Date Time Status POCT GLUCOSE Stat Lab 01/15/24 15:05 Completed Lab/Rad Data: Laboratory Results 01/15/24 Range/Units 15:05 POC Glucometer 120 H (74 to 106) mg/dL - Progress Progress: improved Progress Note: 01/15/24 15:35 68 years old female with history of hypertension, hypothyroidism, prediabetic who had her routine lab work done this morning is sent in ER as her 3-hour glucose testing reading was 40. Patient reports she was fasting from 10 PM until this morning where she had her 3-hour glucose test done. Patient denies being feeling weak fatigued lethargic, diaphoretic or palpitations. She went home and did eat when she got a call about her low glucose. Patient's glucose on presentation in the ER is in 120s. She is not having any symptoms currently or even before when it was actually low. I have reviewed the lab work which is fairly unremarkable with her initial glucose in 116, A1c of 5.9 and on presentation in the ER glucose is 120s. I do not think patient needs any other workup in the ER and is recommended outpatient follow-up with her primary care and primary pedodontist. Discussed signs symptoms of hypoglycemia needing return to ER which she seems understanding. Counseled pt/family regarding: diagnosis, need for follow-up Medical Desision Making - Diagnostic Testing Diagnostic test were ordered, analyzed, and reviewed by me: Yes - Departure Departure Disposition: Home Clinical Impression: Transient hypoglycemia post procedure Condition: Stable Critical Care Time: No Referrals: EILEEN HASSAN MD [Primary Care Provider] - Follow up with PCP 1 day ELVIN WINN DO [NON-STAFF PHY W/O PRIVILEGES] - Follow up other (Call for appointment) Instructions: Low Blood Sugar, Adult (DC) Additional Instructions: Keep sugar candies with you all the time and follow hypoglycemia instructions and take them as needed. Return to ER for any worsening. Follow-up with your primary care and endocrinology for further evaluation.
[2024-01-15 16:03] VITALS: BP 102/71; PULSE 78; O2SAT 96
== END 2024-01-15 16:03 | disposition home or self-care (01) ==
LOC: ED 14:59
DX: E16.1 Other hypoglycemia (principal); I10 Essential (primary) hypertension; Z79.899 Other long term (current) drug therapy
CPT/HCPCS: 82947; 99281

== ENCOUNTER 2024-02-23 12:08 | Emergency (ER) | payer MEDICARE ==
--- NOTE | 2024-02-23 12:16 | ERPHSYRPT ---
- History of Present Illness Time Seen by Provider: 02/23/24 12:15 Source: patient, family Exam Limitations: no limitations Physician History: This is a morbidly obese 68-year-old white female patient of Dr. Hassan who presents by private vehicle with a complaint of bilateral feet and ankle swelling. She states that this has been intermittent over several months. She felt, in the last couple days, her signs and symptoms have increased. She was mildly short of breath yesterday and is not short of breath today. She denies chest pain. She denies trauma or fall. She has no bleeding or clotting disorders. She is on a antihypertensive medication that does contain a diuretic (hydrochlorothiazide). She has not had a cough. Patient has a history of hypothyroidism, hypertension and she states she is prediabetic. Method of Injury: other (No injury) Occurred: other (Chronic intermittent issue) Quality: intermittent (Chronic) Severity of Pain-Max: none Severity of Pain-Current: none Lower Extremities Pain: foot: bilateral, ankle: bilateral Modifying Factors: Improves With: nothing Associated Symptoms: none Allergies/Adverse Reactions: lisinopril Allergy (Mild, Verified 02/23/24 12:16) Penicillins Allergy (Mild, Verified 02/23/24 12:16) Rash Home Medications: Losartan/Hydrochlorothiazide [Losartan-Hctz 50-12.5 mg Tab] 1 each PO DAILY 11/22/19 [History] Apixaban [Eliquis] 1 tab PO BID 02/23/24 [History] Carvedilol 3.125 mg [Coreg 3.125 MG] 1 tab PO BID 02/23/24 [History] Hx Tetanus, Diphtheria Vaccination/Date Given: No Hx Influenza Vaccination/Date Given: No Hx Pneumococcal Vaccination/Date Given: No Travel Risk - International Travel Have you traveled outside of the country in past 3 weeks: No - Emerging Infectious Disease Are you exhibiting symptoms associated with any current EIDs: No - Review of Systems Constitutional: No Symptoms Eyes: No Symptoms Ears, Nose, & Throat: No Symptoms Respiratory: No Symptoms Cardiac: No Symptoms Abdominal/Gastrointestinal: No Symptoms Genitourinary Symptoms: No Symptoms Musculoskeletal: No Symptoms Skin: Other (Mild swelling bilateral feet and ankles per patient report) Neurological: No Symptoms Psychological: No Symptoms Endocrine: No Symptoms Hematologic/Lymphatic: No Symptoms Immunological/Allergic: No Symptoms All Other Systems: Reviewed and Negative - Past Medical History Pertinent Past Medical History: Yes Neurological History: No Pertinent History ENT History: No Pertinent History Cardiac History: Hypertension Respiratory History: No Pertinent History Endocrine Medical History: Diabetes Type II, Other Musculoskeletal History: No Pertinent History GI Medical History: Hernia History: No Pertinent History Psycho-Social History: No Pertinent History Female Reproductive Disorders: No Pertinent History Other Medical History: 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 Pt states she is "prediabetic" states a hx of GERD but currently doesn't have any difficulty and not taking any medications. - Past Surgical History Past Surgical History: Yes Neuro Surgical History: No Pertinent History Cardiac: No Pertinent History Respiratory: No Pertinent History Gastrointestinal: No Pertinent History Genitourinary: No Pertinent History Musculoskeletal: Orthopedic Surgery, Other Female Surgical History: Hysterectomy, Tubal Ligation Other Surgical History: states she has had "fatty tumors" removed from neck and back. Right foot surgery. Right side breast biopsy AUGUST 2019. - Social History Smoking Status: Former smoker Exposure to second hand smoke: No Drug Use: none Patient Lives Alone: Yes - Social Determinants of Health Will the patient participate in the screening: Declined to provide - Nursing Vital Signs Nursing Vital Signs: Initial Vital Signs Pulse Rate 67 02/23/24 12:22 Respiratory Rate 18 02/23/24 12:22 Blood Pressure 156/64 02/23/24 12:22 O2 Sat by Pulse Oximetry 94 L 02/23/24 12:22 Pain Scale Pain Intensity 0 - Physical Exam General Appearance: no apparent distress, alert, anxiety, obese Eyes, Ears, Nose, Throat Exam: normal ENT inspection, moist mucous membranes Neck Exam: normal inspection, non-tender, supple, full range of motion Cardiovascular/Respiratory Exam: chest non-tender, normal breath sounds, regular rate/rhythm, heart sounds normal, no respiratory distress Gastrointestinal/Abdominal Exam: non-tender, soft Back Exam: normal inspection, normal range of motion, No CVA tenderness, No vertebral tenderness Hips Exam: bilateral: non-tender, normal inspection, normal range of motion, no evidence of injury Legs Exam: bilateral leg: non-tender, normal inspection, normal range of motion, no evidence of injury Knees Exam: bilateral knee: non-tender, normal inspection, normal range of motion, no evidence of injury Ankle Exam: bilateral ankle: non-tender, normal range of motion, no evidence of injury, swelling (Mild at most) Foot Exam: bilateral foot: non-tender, normal range of motion, no evidence of injury, swelling (Mild) Neuro/Tendon Exam: normal sensation, normal motor functions, normal tendon functions, responds to pain, no evidence tendon injury Mental Status Exam: alert, oriented x 3 Skin Exam: normal color, warm, dry SpO2 Interpretation: normal O2 Delivery: Room Air - Course Nursing assessment & vital signs reviewed: Yes Ordered Tests: Active Orders 24 hr Category Date Time Status IV Insertion STAT Care 02/23/24 12:30 Active BMP Stat Lab 02/23/24 12:44 Completed CBC W DIFF Stat Lab 02/23/24 12:44 Completed D-DIMER QUANTITATIVE Stat Lab 02/23/24 12:44 Completed NT PRO BNPII Stat Lab 02/23/24 12:44 Received Lab/Rad Data: Laboratory Result Diagrams 02/23/24 12:44 02/23/24 12:44 Laboratory Results 02/23/24 02/23/24 02/23/24 Range/Units 12:44 12:44 12:44 WBC 5.1 (3.98-10.04) x10^3/uL RBC 4.42 (3.93-5.22) x10^6/uL Hgb 13.2 (11.2-15.7) g/dL Hct 39.9 (34.1-44.9) % MCV 90.3 (79.4-94.8) fL MCH 29.9 (25.6-32.2) pg MCHC 33.1 (32.2-35.5) g/dL RDW 13.3 (11.7-14.4) % Plt Count 154 L (182-369) x10^3/uL MPV 10.6 (9.4-12.3) fL Gran % 67.8 (34.0-71.1) % Immature Gran % (Auto) 0.2 (0.001-0.429) % Nucleat RBC Rel Count 0.0 (0.00-0.2) % Eos # (Auto) 0.16 (0.04-0.36) x10^3/uL Immature Gran # (Auto) 0.01 (0.001-0.031) x10^3u/L Absolute Lymphs (auto) 1.12 L (1.18-3.74) x10^3/uL Absolute Monos (auto) 0.33 (0.24-0.86) x10^3/uL Absolute Nucleated RBC 0.00 (0.00-0.012) x10^3u/L Lymphocytes % 22.0 (19.3-51.7) % Monocytes % 6.5 (4.7-12.5) % Eosinophils % 3.1 (0.7-5.8) % Basophils % 0.4 (0.1-1.2) % Absolute Granulocytes 3.44 (1.56-6.13) x10^3/uL Basophils # 0.02 (0.01-0.08) x10^3/uL D-Dimer 0.37 (0.0-0.50) mg/L Sodium 139 (135-145) mmol/L Potassium 3.6 (3.5-5.1) mmol/L Chloride 105 (98-107) mmol/L Carbon Dioxide 28 (22-30) mmol/L Anion Gap 9.6 (5-15) MEQ/L BUN 12 (7-17) mg/dL Creatinine 0.61 (0.52-1.04) mg/dL Estimated GFR 96.1 ML/MIN Glucose 112 H (74-106) mg/dL Calcium 9.1 (8.4-10.2) mg/dL - Progress Progress: unchanged Progress Note: 02/23/24 12:47 My medical decision making and the assignment of moderate complexity to this patient's medical issue today is based on review of the patient's past medical history, review the patient's medication list, reviewed patient drug allergy list, history present illness and physical findings on examination. The workup in this patient includes placement of an intravenous line, CBC, BMP, BNP, D- dimer level. Differential diagnosis includes but is not limited to DVT, CHF, renal disease 02/23/24 15:02 I have interpreted the patient's laboratory data results except for the BNP. That lab had to be sent out to another facility. Our lab stated that the machine that runs that test is being worked on at this time. The remainder of the labs are within normal limits and do not show an acute or emergent medical issue. 02/23/24 15:32 The patient and I agreed to discharge her to home. Her vital signs are stable as are her labs. The BNP has not yet returned and it could take another half hour to hour. The patient would prefer to go home rather than wait. She also has a follow-up appointment scheduled to see her primary care provider on 02/25/2024. Counseled pt/family regarding: lab results, diagnosis, need for follow-up Medical Desision Making - Diagnostic Testing Diagnostic test were ordered, analyzed, and reviewed by me: Yes - Risk of complications Minimal Risk: Minimal risk of morbidity - Departure Departure Disposition: Home Clinical Impression: Swelling of both ankles Condition: Stable Critical Care Time: No Referrals: EILEEN HASSAN MD [Primary Care Provider] - Follow up/PCP as directed Additional Instructions: Take all your medications as prescribed. Keep your appointment with Dr. Hassan on 02/25/2024
[2024-02-23 12:28] VITALS: RESP 20; TEMP 98.4
[2024-02-23 12:46] LABS: Absolute Neutrophil Ct (ANC) 3.44 x10^3/uL (1.56-6.13); BASOPHIL % 0.4 % (0.1-1.2); Basophil (Absolute #) 0.02 x10^3/uL (0.01-0.08); Eosinophil % 3.1 % (0.7-5.8); Eosinophil (Absolute #) 0.16 x10^3/uL (0.04-0.36); Hematocrit 39.9 % (34.1-44.9); Hemoglobin 13.2 g/dL (11.2-15.7); IMMATURE GRAN # 0.01 x10^3u/L (0.001-0.031); IMMATURE GRAN % 0.2 % (0.001-0.429); Lymphocyte (Absolute #) 1.12 x10^3/uL (1.18-3.74); Mean Cell Volume 90.3 fL (79.4-94.8); Mean Corpuscular Hemoglobin 29.9 pg (25.6-32.2); Mean Corpuscular Hgb Concent. 33.1 g/dL (32.2-35.5); Mean Platelet Volume 10.6 fL (9.4-12.3); Monocyte (Absolute #) 0.33 x10^3/uL (0.24-0.86); Monocytes % 6.5 % (4.7-12.5); Neutrophil % 67.8 % (34.0-71.1); Platelet Count 154 x10^3/uL (182-369); Red Blood Count 4.42 x10^6/uL (3.93-5.22); Red Cell Distribution Width 13.3 % (11.7-14.4); White Blood Count 5.1 x10^3/uL (3.98-10.04)
[2024-02-23 14:14] LABS: ANION GAP 9.6 MEQ/L (5-15); Calcium 9.1 mg/dL (8.4-10.2); Creatinine 1 0.61 mg/dL (0.52-1.04); EST GLOMERULAR FILTRATION RATE 96.1 ML/MIN; Potassium 3.6 mmol/L (3.5-5.1)
[2024-02-23 15:32] VITALS: BP 103/59; PULSE 53; O2SAT 97
== END 2024-02-23 15:41 | disposition home or self-care (01) ==
LOC: ED 12:08
DX: M79.89 Other specified soft tissue disorders (principal); I10 Essential (primary) hypertension; R73.03 Prediabetes; Z79.01 Long term (current) use of anticoagulants; Z79.899 Other long term (current) drug therapy
CPT/HCPCS: 36415; 80048; 83880; 85025; 85379; 99283

== ENCOUNTER 2024-04-06 21:43 | Observation (INO) | payer MEDICARE ==
--- NOTE | 2024-04-06 21:56 | ERPHSYRPT ---
- History of Present Illness Time Seen by Provider: 04/06/24 21:57 Historian: patient Exam Limitations: no limitations Patient Subjective Stated Complaint: intermittent chest pain that started today, pt describes pain as a "pinch" on the L side of chest, denies radiation Triage Nursing Assessment: pt ambulatory to bed by self, pt alert and oriented x3, skin pwd, pt c/o L sided intermittent chest pain that started today, powerhouse oiler is Dr. Vincent, radial pulses strong and equal bilateral, heart sounds normal Physician History: 68-year-old female history of A-fib on Eliquis, hypertension, BMI of 44 former smoker presents to our ED for evaluation of left-sided chest pain worse with exertion. Pain described pain described as an intermittent pinching sensation. EKG shows a new left bundle branch block. Patient describes the pain as intermittent. Pain has been progressively more frequent and intense as the day progressed. Mild nausea no shortness of breath. No trauma no fever. Symptoms are mild to moderate in intensity. Symptoms are worse with exertion. No active pain at this time. Patient otherwise feels well. She voices no other complaints or concerns at this time. Last stress test was approximately 3 years ago. Portions of this note were created with voice recognition technology. There may be grammatical, spelling, punctuation or sound alike errors Timing/Duration: today Activities at Onset: activity Quality: aching, other (Pinching pain left chest) Chest Pain Radiation: no radiation Severity of Pain-Max: moderate Severity of Pain-Current: mild Modifying Factors: Improves With: other (Pain worse with activity improved with rest) Associated Symptoms: nausea Nitro Today/Relief: no nitro taken today Aspirin Treatment Today: no aspirin today Allergies/Adverse Reactions: lisinopril Allergy (Mild, Verified 04/06/24 21:48) Penicillins Allergy (Mild, Verified 04/06/24 21:48) Rash Home Medications: Losartan/Hydrochlorothiazide [Losartan-Hctz 50-12.5 mg Tab] 1 each PO DAILY 11/22/19 [History] Apixaban [Eliquis] 1 tab PO BID 02/23/24 [History] Carvedilol 3.125 mg [Coreg 3.125 MG] 1 tab PO BID 02/23/24 [History] Semaglutide [Ozempic] 0.5 mg SQ WEEKLY 04/06/24 [History] Hx Tetanus, Diphtheria Vaccination/Date Given: No Hx Influenza Vaccination/Date Given: No Hx Pneumococcal Vaccination/Date Given: No Travel Risk - International Travel Have you traveled outside of the country in past 3 weeks: No - Emerging Infectious Disease Are you exhibiting symptoms associated with any current EIDs: No - Review of Systems Constitutional: No Symptoms, No Fever, No Chills Eyes: No Symptoms Ears, Nose, & Throat: No Symptoms Respiratory: No Symptoms, No Cough, No Dyspnea Cardiac: No Symptoms, No Chest Pain, No Edema, No Syncope Abdominal/Gastrointestinal: No Symptoms, No Abdominal Pain, No Nausea, No Vomiting, No Diarrhea Genitourinary Symptoms: No Symptoms, No Dysuria Musculoskeletal: No Symptoms, No Back Pain, No Neck Pain Skin: No Symptoms, No Rash Neurological: No Symptoms, No Dizziness, No Focal Weakness, No Sensory Changes Psychological: No Symptoms Endocrine: No Symptoms Hematologic/Lymphatic: No Symptoms Immunological/Allergic: No Symptoms All Other Systems: Reviewed and Negative - Past Medical History Pertinent Past Medical History: Yes Neurological History: No Pertinent History ENT History: No Pertinent History Cardiac History: High Cholesterol, Hypertension Respiratory History: No Pertinent History Endocrine Medical History: Diabetes Type II, Other Musculoskeletal History: No Pertinent History GI Medical History: Hernia History: No Pertinent History Psycho-Social History: No Pertinent History Female Reproductive Disorders: No Pertinent History Other Medical History: 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 Pt states she is "prediabetic" states a hx of GERD but currently doesn't have any difficulty and not taking any medications. - Past Surgical History Past Surgical History: Yes Neuro Surgical History: No Pertinent History Cardiac: No Pertinent History Respiratory: No Pertinent History Gastrointestinal: No Pertinent History Genitourinary: No Pertinent History Musculoskeletal: Orthopedic Surgery, Other Female Surgical History: Hysterectomy, Tubal Ligation Other Surgical History: states she has had "fatty tumors" removed from neck and back. Right foot surgery. Right side breast biopsy AUGUST 2019. - Social History Smoking Status: Former smoker Exposure to second hand smoke: No Drug Use: none Patient Lives Alone: Yes - Social Determinants of Health Will the patient participate in the screening: Declined to provide - Nursing Vital Signs Nursing Vital Signs: Initial Vital Signs Temperature 97.8 F 04/06/24 21:48 Pulse Rate 69 04/06/24 21:48 Respiratory Rate 18 04/06/24 21:48 Blood Pressure 143/66 04/06/24 21:48 O2 Sat by Pulse Oximetry 97 04/06/24 21:48 Pain Scale Pain Intensity 0 - Physical Exam General Appearance: no apparent distress, alert Eye Exam: PERRL/EOMI, eyes nml inspection Ears, Nose, Throat Exam: normal ENT inspection, moist mucous membranes Neck Exam: normal inspection, non-tender, supple, full range of motion Respiratory Exam: normal breath sounds, lungs clear, No respiratory distress Cardiovascular Exam: regular rate/rhythm, normal heart sounds Gastrointestinal/Abdomen Exam: soft, No tenderness, No mass Back Exam: normal inspection, No CVA tenderness, No vertebral tenderness Extremity Exam: normal inspection, normal range of motion Neurologic Exam: alert, oriented x 3, cooperative, normal mood/affect, sensation nml, No motor deficits Skin Exam: normal color, warm, dry Lymphatic Exam: No adenopathy SpO2 Interpretation: normal SpO2: 97 O2 Delivery: Room Air - Course Nursing assessment & vital signs reviewed: Yes EKG Interpreted by Me: RATE (67), Sinus Rhythm, NORMAL AXIS, NORMAL INTERVALS, Left Bundle Branch Block - Radiology Exams Chest X-ray Interpretation: Teleradiologist Report (Cardiomegaly, prominent bronchovascular markings, left pleural thickening possible effusion) Ordered Tests: Active Orders 24 hr Category Date Time Status Padder STAT Care 04/06/24 21:55 Active EKG-ER Only STAT Care 04/06/24 21:54 Active IV Insertion STAT Care 04/06/24 21:54 Active Pulse Oximetry (ED) STAT Care 04/06/24 21:54 Active CHEST 1 VIEW (PORTABLE) Stat Exams 04/06/24 23:08 Completed CBC W DIFF Stat Lab 04/06/24 22:05 Completed CMP Stat Lab 04/06/24 22:05 Completed D-DIMER QUANTITATIVE Stat Lab 04/06/24 22:05 Completed NT PRO BNPII Stat Lab 04/06/24 22:05 Completed TROPONIN Q4H Lab 04/06/24 22:05 Completed TROPONIN Q4H Lab 04/07/24 00:40 Completed TROPONIN Q4H Lab 04/07/24 06:00 Ordered Transfer Order Routine Transfer 04/07/24 Ordered Medication Summary Discontinued Medications Generic Name Dose Route Start Last Admin Trade Name Freq PRN Reason Stop Dose Admin Aspirin 81 mg 04/06/24 21:58 04/06/24 22:09 Aspirin 81 Mg Tab.Chew PO 04/06/24 21:59 81 mg STAT ONE Administration Aspirin Confirm 04/06/24 22:08 Aspirin 81 Mg Tab.Chew Administered 04/06/24 22:09 Dose 81 mg .ROUTE .STK-MED ONE Lab/Rad Data: Laboratory Result Diagrams 04/06/24 22:05 04/06/24 22:05 Laboratory Results 04/07/24 04/06/24 04/06/24 Range/Units 00:40 22:05 22:05 WBC (3.98-10.04) x10^3/uL RBC (3.93-5.22) x10^6/uL Hgb (11.2-15.7) g/dL Hct (34.1-44.9) % MCV (79.4-94.8) fL MCH (25.6-32.2) pg MCHC (32.2-35.5) g/dL RDW (11.7-14.4) % Plt Count (182-369) x10^3/uL MPV (9.4-12.3) fL Gran % (34.0-71.1) % Immature Gran % (Auto) (0.001-0.429) % Nucleat RBC Rel Count (0.00-0.2) % Eos # (Auto) (0.04-0.36) x10^3/uL Immature Gran # (Auto) (0.001-0.031) x10^3u/L Absolute Lymphs (auto) (1.18-3.74) x10^3/uL Absolute Monos (auto) (0.24-0.86) x10^3/uL Absolute Nucleated RBC (0.00-0.012) x10^3u/L Lymphocytes % (19.3-51.7) % Monocytes % (4.7-12.5) % Eosinophils % (0.7-5.8) % Basophils % (0.1-1.2) % Absolute Granulocytes (1.56-6.13) x10^3/uL Basophils # (0.01-0.08) x10^3/uL D-Dimer 0.51 H (0.0-0.50) mg/L Sodium (135-145) mmol/L Potassium (3.5-5.1) mmol/L Chloride (98-107) mmol/L Carbon Dioxide (22-30) mmol/L Anion Gap (5-15) MEQ/L BUN (7-17) mg/dL Creatinine (0.52-1.04) mg/dL Estimated GFR ML/MIN Glucose (74-106) mg/dL Calcium (8.4-10.2) mg/dL Total Bilirubin (0.2-1.3) mg/dL AST (14-36) U/L ALT (0-35) U/L Alkaline Phosphatase (38-126) U/L Troponin I < 0.012 < 0.012 (0.000-0.033) ng/mL NT-Pro-B Natriuret Pep (<300) pg/mL Serum Total Protein (6.3-8.2) g/dL Albumin (3.5-5.0) g/dL 04/06/24 04/06/24 Range/Units 22:05 22:05 WBC 6.2 (3.98-10.04) x10^3/uL RBC 4.32 (3.93-5.22) x10^6/uL Hgb 12.9 (11.2-15.7) g/dL Hct 38.7 (34.1-44.9) % MCV 89.6 (79.4-94.8) fL MCH 29.9 (25.6-32.2) pg MCHC 33.3 (32.2-35.5) g/dL RDW 13.1 (11.7-14.4) % Plt Count 164 L (182-369) x10^3/uL MPV 10.8 (9.4-12.3) fL Gran % 61.0 (34.0-71.1) % Immature Gran % (Auto) 0.2 (0.001-0.429) % Nucleat RBC Rel Count 0.0 (0.00-0.2) % Eos # (Auto) 0.15 (0.04-0.36) x10^3/uL Immature Gran # (Auto) 0.01 (0.001-0.031) x10^3u/L Absolute Lymphs (auto) 1.74 (1.18-3.74) x10^3/uL Absolute Monos (auto) 0.50 (0.24-0.86) x10^3/uL Absolute Nucleated RBC 0.00 (0.00-0.012) x10^3u/L Lymphocytes % 27.9 (19.3-51.7) % Monocytes % 8.0 (4.7-12.5) % Eosinophils % 2.4 (0.7-5.8) % Basophils % 0.5 (0.1-1.2) % Absolute Granulocytes 3.81 (1.56-6.13) x10^3/uL Basophils # 0.03 (0.01-0.08) x10^3/uL D-Dimer (0.0-0.50) mg/L Sodium 139 (135-145) mmol/L Potassium 4.0 (3.5-5.1) mmol/L Chloride 105 (98-107) mmol/L Carbon Dioxide 26 (22-30) mmol/L Anion Gap 11.2 (5-15) MEQ/L BUN 26 H (7-17) mg/dL Creatinine 1.01 (0.52-1.04) mg/dL Estimated GFR 59.9 ML/MIN Glucose 104 (74-106) mg/dL Calcium 9.0 (8.4-10.2) mg/dL Total Bilirubin 0.50 (0.2-1.3) mg/dL AST 28 (14-36) U/L ALT 24 (0-35) U/L Alkaline Phosphatase 109 (38-126) U/L Troponin I (0.000-0.033) ng/mL NT-Pro-B Natriuret Pep 140 (<300) pg/mL Serum Total Protein 6.8 (6.3-8.2) g/dL Albumin 3.9 (3.5-5.0) g/dL - Progress Progress: improved Air Movement: good Progress Note: 68-year-old female history of hypertension hypercholesterolemia diabetes presents to emergency department for evaluation of chest pain associated with exertion. EKG reveals a left bundle branch block. Physical exam otherwise unremarkable. Troponin negative x 2. While in our ED patient began to complain of chest pain at rest. Nitroglycerin paste applied. Patient received aspirin. Patient currently on Eliquis. D-dimer corrected for age is negative. No indication for follow-up CTA chest.. Patient will be admitted for further evaluation and treatment. Plan of care discussed with patient. She agrees to admission to [facility] for further evaluation and treatment. Case discussed with hospitalist who accepts admission to observation at 1:30 AM. Chest x-ray revealed prominent bronchovascular markings, cardiomegaly, left pleural effusion vs pleural thickening Portions of this note were created with voice recognition technology. There may be grammatical, spelling, punctuation or sound alike errors Complexity of problem addressed is moderate acute complicated. No critical care time. Complexity of data reviewed and analyzed is extensive. Test ordered chest reviewed results analyzed and correlated clinically with history and physical exam. Management discussed with hospitalist who accepts admission to observation at 1:30 AM. Risk of complication and or risk of morbidity/mortality of patient management is high. Patient requires hospitalization for further evaluation and treatment. Vital stable. Time spent admit patient is approximately 20 minutes. Plan of care established for shared decision making. No social determinants of health present to impede follow-up. Portions of this note were created with voice recognition technology. There may be grammatical, spelling, punctuation or sound alike errors 04/07/24 01:41 Blood Culture(s) Obtained: No Antibiotics given: No Discussed with : Patti Will see patient in: hospital (observation) Counseled pt/family regarding: lab results, diagnosis, rad results (Case discussed with Dr. Adame at approximately 1:30 AM.) - Departure Departure Disposition: Observation Clinical Impression: Left bundle branch block, Chest pain, ACS (acute coronary syndrome) Condition: Stable Critical Care Time: No Referrals: EILEEN HASSAN MD [Primary Care Provider] - Follow up/PCP as directed
[2024-04-06 22:08] LABS: Absolute Neutrophil Ct (ANC) 3.81 x10^3/uL (1.56-6.13); BASOPHIL % 0.5 % (0.1-1.2); Basophil (Absolute #) 0.03 x10^3/uL (0.01-0.08); Eosinophil % 2.4 % (0.7-5.8); Eosinophil (Absolute #) 0.15 x10^3/uL (0.04-0.36); Hematocrit 38.7 % (34.1-44.9); Hemoglobin 12.9 g/dL (11.2-15.7); IMMATURE GRAN # 0.01 x10^3u/L (0.001-0.031); IMMATURE GRAN % 0.2 % (0.001-0.429); Lymphocyte (Absolute #) 1.74 x10^3/uL (1.18-3.74); Lymphocytes % 27.9 % (19.3-51.7); Mean Cell Volume 89.6 fL (79.4-94.8); Mean Corpuscular Hemoglobin 29.9 pg (25.6-32.2); Mean Corpuscular Hgb Concent. 33.3 g/dL (32.2-35.5); Mean Platelet Volume 10.8 fL (9.4-12.3); Platelet Count 164 x10^3/uL (182-369); Red Blood Count 4.32 x10^6/uL (3.93-5.22); Red Cell Distribution Width 13.1 % (11.7-14.4); White Blood Count 6.2 x10^3/uL (3.98-10.04)
[2024-04-06] MEDS ORDERED: BABY ASPIRIN 81 MG CHEW ONE (22:08)
[2024-04-06] MEDS: BABY ASPIRIN 81 MG CHEW PO ONE (22:09)
[2024-04-06 22:28] LABS: ALBUMIN 3.9 g/dL (3.5-5.0); ANION GAP 11.2 MEQ/L (5-15); BILIRUBIN,TOTAL 0.5 mg/dL (0.2-1.3); Creatinine 1 1.01 mg/dL (0.52-1.04); EST GLOMERULAR FILTRATION RATE 59.9 ML/MIN; Total Protein 6.8 g/dL (6.3-8.2)
--- NOTE | 2024-04-07 00:13 | XRAY ---
CLINICAL HISTORY: pain COMPARISON: 09/23/2023. TECHNIQUE: X-ray image of the chest is obtained in AP portable projection. FINDINGS: Pulmonary Parenchyma: Prominent bronchovascular marking, mainly in perihilar region. Interval is new. Obliteration of left costophrenic angle. Likely due to left-side pleural effusion/thickening. Interval is new. Lungs are clear bilaterally. No evidence of consolidation, collapse, or focal opacities. No evidence of right-side pleural effusion or pleural thickening. Heart and Mediastinum: Increased cardiothoracic ratio. No mediastinal widening or masses. No hilar or mediastinal lymphadenopathy. Bony Thorax: Degenerative changes of the visualized skeleton. Bony thorax appears intact without fractures or deformities. Soft Tissues: Soft tissues overlying the chest wall are unremarkable. IMPRESSION: 1. Cardiomegaly. (Stable) 2. A prominent bronchovascular marking, mainly in the perihilar region. This nonspecific finding could be due to pulmonary congestion/inflammatory process. Need clinical correlation. Interval new. 3. Left side pleural effusion/thickening. Interval new. Electronically Signed by: Raisa Ocasio MD. (04/07/2024 00:09:54 EST)
[2024-04-07] MEDS ORDERED: NITRO-BID 2% UD PACKETS ONE (01:48)
[2024-04-07] MEDS: NITRO-BID 2% UD PACKETS TOP ONE (01:49)
[2024-04-07] MEDS ORDERED: HUMALOG SQ PRN (02:35)
[2024-04-07] MEDS ORDERED: TYLENOL 325 MG PO PRN (02:35)
--- NOTE | 2024-04-07 02:49 | PCM.HP ---
History of Present Illness - Chief Complaint Chief Complaint: Chest pain Date: 04/07/24 History of Present Illness: 68-year-old woman with history of A-fib, hypertension, diabetes, here with chest pain. Patient noted onset of left-sided "pinching" chest pain, lasting a few seconds, severe in intensity, when she was carrying some items into the store. Pain was relieved after resting. She had recurrence of the pain again later in the day after walking her dog, again lasting only a few seconds, but less severe in intensity. She has not had multiple episodes of similar pain throughout the day, usually after more activity, lasting a few seconds, and relieved by rest. No associated dyspnea, nausea, or numbness. No radiation of the pain. No history of similar pains in the past. No history of coronary disease. Non-smoker. Does have one brother with history of NH at age 50. - Review of Systems All Other Systems: Reviewed and Negative Medications & Allergies Home Medications: Home Medication List Losartan/Hydrochlorothiazide [Losartan-Hctz 50-12.5 mg Tab] 1 each PO DAILY 11/22/19 [History Confirmed 04/06/24] Apixaban [Eliquis] 1 tab PO BID 02/23/24 [History Confirmed 04/06/24] Carvedilol 3.125 mg [Coreg 3.125 MG] 1 tab PO BID 02/23/24 [History Confirmed 04/06/24] Semaglutide [Ozempic] 0.5 mg SQ WEEKLY 04/06/24 [History Confirmed 04/06/24] Allergies/Adverse Reactions: Allergies Allergy/AdvReac Type Severity Reaction Status Date / Time lisinopril Allergy Mild Verified 04/06/24 21:48 Penicillins Allergy Mild Rash Verified 04/06/24 21:48 metformin AdvReac Diarrhea Verified 04/07/24 02:18 - Past Medical History Past Medical History: Yes Neurological History: No Pertinent History ENT History: No Pertinent History Cardiac History: High Cholesterol, Hypertension Respiratory History: No Pertinent History Endocrine Medical History: Diabetes Type II, Other Musculoskelatal History: No Pertinent History GI Medical History: Hernia History: No Pertinent History Pyscho-Social History: No Pertinent History Reproductive Disorders: No Pertinent History Comment: 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 Pt states she is "prediabetic" states a hx of GERD but currently doesn't have any difficulty and not taking any medications. - Past Surgical History Past Surgical History: Yes Neuro Surgical History: No Pertinent History Cardiac History: No Pertinent History Respiratory Surgery: No Pertinent History GI Surgical History: No Pertinent History Genitourinary Surgical Hx: No Pertinent History Musculskeletal Surgical Hx: Orthopedic Surgery, Other Female Surgical History: Hysterectomy, Tubal Ligation Other Surgical History: states she has had "fatty tumors" removed from neck and back. Right foot surgery. Right side breast biopsy AUGUST 2019. Significant Family History: heart disease (Brother NH at age 50, mother at age 62) - Social History Smoking Status: Former smoker Exposure to second hand smoke: No Alcohol: None Drug Use: none - Social Determinants of Health Will the patient participate in the screening: Declined to provide Do you worry about a steady place to live?: No In the past 12 months,have you had to go without utilities?: No Have you or anyone in your house had to go without enough: No Transportation Issues: No Has anyone in your support network made you feel unsafe?: No - Physical Exam Vital Signs: Vital Signs - 24 hr Temp Pulse Pulse Resp BP BP Pulse Ox 04/07/24 01:47 97 04/07/24 01:27 60 27 H 144/53 96 04/07/24 00:31 66 18 127/41 97 04/07/24 00:01 57 L 17 129/50 93 L 04/06/24 23:31 58 L 20 131/46 94 L 04/06/24 23:01 57 L 22 147/66 94 L 04/06/24 23:00 64 20 96 04/06/24 22:59 81 20 94 L 04/06/24 22:01 18 136/57 04/06/24 21:56 66 96 04/06/24 21:48 97.8 F 69 18 143/66 97 General Appearance: no apparent distress Neurologic Exam: alert, oriented x 3, cooperative, normal mood/affect Eye Exam: PERRL/EOMI, eyes nml inspection, No scleral icterus Ears, Nose, Throat Exam: moist mucous membranes Neck Exam: full range of motion, No normal inspection Respiratory Exam: normal breath sounds, chest tenderness (Chest wall tender to palpation over the mid sternum, reproducing the pain patient had previously.), lungs clear, No respiratory distress Cardiovascular Exam: regular rate/rhythm, normal heart sounds, No murmur, No edema Gastrointestinal/Abdomen Exam: No tenderness, No distention Back Exam: normal inspection, normal range of motion Extremity Exam: normal inspection, normal range of motion, No joint swelling Skin Exam: normal color, No rash Results - Labs Lab/Micro Results: Lab Results-Last 24 Hours 04/06/24 04/06/24 04/06/24 Range/Units 22:05 22:05 22:05 WBC 6.2 (3.98-10.04) x10^3/uL RBC 4.32 (3.93-5.22) x10^6/uL Hgb 12.9 (11.2-15.7) g/dL Hct 38.7 (34.1-44.9) % MCV 89.6 (79.4-94.8) fL MCH 29.9 (25.6-32.2) pg MCHC 33.3 (32.2-35.5) g/dL RDW 13.1 (11.7-14.4) % Plt Count 164 L (182-369) x10^3/uL MPV 10.8 (9.4-12.3) fL Gran % 61.0 (34.0-71.1) % Immature Gran % (Auto) 0.2 (0.001-0.429) % Nucleat RBC Rel Count 0.0 (0.00-0.2) % Eos # (Auto) 0.15 (0.04-0.36) x10^3/uL Immature Gran # (Auto) 0.01 (0.001-0.031) x10^3u/L Absolute Lymphs (auto) 1.74 (1.18-3.74) x10^3/uL Absolute Monos (auto) 0.50 (0.24-0.86) x10^3/uL Absolute Nucleated RBC 0.00 (0.00-0.012) x10^3u/L Lymphocytes % 27.9 (19.3-51.7) % Monocytes % 8.0 (4.7-12.5) % Eosinophils % 2.4 (0.7-5.8) % Basophils % 0.5 (0.1-1.2) % Absolute Granulocytes 3.81 (1.56-6.13) x10^3/uL Basophils # 0.03 (0.01-0.08) x10^3/uL D-Dimer 0.51 H (0.0-0.50) mg/L Sodium 139 (135-145) mmol/L Potassium 4.0 (3.5-5.1) mmol/L Chloride 105 (98-107) mmol/L Carbon Dioxide 26 (22-30) mmol/L Anion Gap 11.2 (5-15) MEQ/L BUN 26 H (7-17) mg/dL Creatinine 1.01 (0.52-1.04) mg/dL Estimated GFR 59.9 ML/MIN Glucose 104 (74-106) mg/dL Calcium 9.0 (8.4-10.2) mg/dL Total Bilirubin 0.50 (0.2-1.3) mg/dL AST 28 (14-36) U/L ALT 24 (0-35) U/L Alkaline Phosphatase 109 (38-126) U/L Troponin I (0.000-0.033) ng/mL NT-Pro-B Natriuret Pep 140 (<300) pg/mL Serum Total Protein 6.8 (6.3-8.2) g/dL Albumin 3.9 (3.5-5.0) g/dL 04/06/24 04/07/24 Range/Units 22:05 00:40 WBC (3.98-10.04) x10^3/uL RBC (3.93-5.22) x10^6/uL Hgb (11.2-15.7) g/dL Hct (34.1-44.9) % MCV (79.4-94.8) fL MCH (25.6-32.2) pg MCHC (32.2-35.5) g/dL RDW (11.7-14.4) % Plt Count (182-369) x10^3/uL MPV (9.4-12.3) fL Gran % (34.0-71.1) % Immature Gran % (Auto) (0.001-0.429) % Nucleat RBC Rel Count (0.00-0.2) % Eos # (Auto) (0.04-0.36) x10^3/uL Immature Gran # (Auto) (0.001-0.031) x10^3u/L Absolute Lymphs (auto) (1.18-3.74) x10^3/uL Absolute Monos (auto) (0.24-0.86) x10^3/uL Absolute Nucleated RBC (0.00-0.012) x10^3u/L Lymphocytes % (19.3-51.7) % Monocytes % (4.7-12.5) % Eosinophils % (0.7-5.8) % Basophils % (0.1-1.2) % Absolute Granulocytes (1.56-6.13) x10^3/uL Basophils # (0.01-0.08) x10^3/uL D-Dimer (0.0-0.50) mg/L Sodium (135-145) mmol/L Potassium (3.5-5.1) mmol/L Chloride (98-107) mmol/L Carbon Dioxide (22-30) mmol/L Anion Gap (5-15) MEQ/L BUN (7-17) mg/dL Creatinine (0.52-1.04) mg/dL Estimated GFR ML/MIN Glucose (74-106) mg/dL Calcium (8.4-10.2) mg/dL Total Bilirubin (0.2-1.3) mg/dL AST (14-36) U/L ALT (0-35) U/L Alkaline Phosphatase (38-126) U/L Troponin I < 0.012 < 0.012 (0.000-0.033) ng/mL NT-Pro-B Natriuret Pep (<300) pg/mL Serum Total Protein (6.3-8.2) g/dL Albumin (3.5-5.0) g/dL - Radiology Impressions Radiology Exams & Impressions: Radiology Procedures Category Date Time Status CHEST 1 VIEW (PORTABLE) Stat Exams 04/06/24 23:08 Completed Chest x-ray loss of left costophrenic border, indicating left pleural effusion. No consolidation. (Images reviewed personally.) Assessment/Plan (1) Chest pain Current Visit: Yes Status: Acute Assessment & Plan: 68-year-old woman with a history of hypertension, A-fib, and diabetes, here with chest pain. ## Chest pain most likely secondary to musculoskeletal pain, based on reproducibility of the pain with palpation of the anterior chest wall. Although she has what appears to be pain worse with activity and relieved by rest, this would also be consistent with increased motion and activity as well as weight on the upper torso, worsening a chest wall strain pain. Patient does have multiple risk factors including her diabetes, hypertension, age, and family history, so warrants evaluation. However, initial EKG and troponin are normal. Will place in observation and monitor on telemetry overnight Obtain serial troponins If no other findings, can recommend discharge home with for pain and inflammation control ## Type 2 diabetes currently only on Ozempic. Place on low-dose sliding scale insulin Diabetic diet ## Hypertension blood pressure currently well-controlled. Continue home losartan/HCTZ and Coreg ## Paroxysmal atrial fibrillation currently in normal sinus rhythm. Continue Eliquis 5 mg BID Continue Coreg 3.125 BID CODE STATUS: Full code Prophylaxis: Eliquis Diet: Diabetic Dispo: Place in observation, expect patient will discharge to home tomorrow Code(s): R07.9 - CHEST PAIN, UNSPECIFIED Telemedicine Encounter - Telemedicine Encounter Telemedicine Encounter: "The entirety of this encounter was performed via Telemedicine" This visit was performed using real-time audio and video connection between my location and thepatients locationwith the assistance of a surrogateat the patients location. Written or verbal consent was obtained from the patient/guardian to perform this visit [facility] technology. Any patient questions regarding the telemedicine interaction were answered.
[2024-04-07 05:51] LABS: Creatinine 1 0.77 mg/dL (0.52-1.04); EST GLOMERULAR FILTRATION RATE 82.9 ML/MIN; Potassium 3.5 mmol/L (3.5-5.1)
[2024-04-07 07:56] VITALS: TEMP 98.2
[2024-04-07] MEDS: ELIQUIS 2.5 MG TABLET PO SCH (09:04)
[2024-04-07] MEDS: Cozaar 50 MG PO SCH (09:04)
[2024-04-07] MEDS: hydroDIURIL 25 MG PO SCH (09:05)
[2024-04-07] MEDS: Lasix 20 MG/2 ML IV SCH (09:06)
[2024-04-07] MEDS ORDERED: NON-FORMULARY ITEM (Losartan/Hydrochlorothiazide [Losartan-Hctz 50-12.5 Mg Tab] 1 EACH Tab PO SCH (10:00)
[2024-04-07] MEDS: Coreg 3.125 MG PO SCH (11:29)
[2024-04-07] MEDS: Klor Con PO SCH (11:32)
[2024-04-07 12:36] VITALS: BP 127/59; PULSE 59; RESP 13; O2SAT 96
--- NOTE | 2024-04-07 15:03 | PCM.DS ---
Discharge Summary Date of Admission: 04/07/24 01:42 Date of Discharge: 04/07/24 Admitting Physician: ANANDA GRIFFITH MD Consults: Consults on Case 04/07/24 07:[address] [facility] Needs Assessment ROUTINE Primary Care Provider: EILEEN HASSAN RUSTY Allergies Allergies lisinopril Allergy (Mild, Verified 04/06/24 21:48) Penicillins Allergy (Mild, Verified 04/06/24 21:48) Rash metformin Adverse Reaction (Verified 04/07/24 02:18) Diarrhea Hospital Summary - Hospital Course Hospital Course: 68-year-old woman with history of A-fib, hypertension, diabetes, here with chest pain. Patient noted onset of left-sided "pinching" chest pain, lasting a few seconds, severe in intensity, when she was carrying some items into the store. Pain was relieved after resting. She had recurrence of the pain again later in the day after walking her dog, again lasting only a few seconds, but less severe in intensity. She has not had multiple episodes of similar pain throughout the day, usually after more activity, lasting a few seconds, and relieved by rest. No associated dyspnea, nausea, or numbness. No radiation of the pain. No history of similar pains in the past. No history of coronary disease. Non-smoker. Does have one brother with history of CA at age 50. She is feeling better sicne admission. She admits she picked up lasix and potassium but did not start taking it yet and forgot she had these meds. IV lasix x1 dose gave this AM. She is feeling better now and would like to d/c. Trop X3 negatve. She follows Dr. Sykes and OP appointment made. Advised to make sure she takes her meds as pres cribed at home. She denies CP, SOB, abd pain, N/V/D. - Vitals & Intake/Output Vital Signs: Vital Signs Temperature 98.2 F 04/07/24 12:00 Pulse Rate 59 L 04/07/24 12:00 Respiratory Rate 13 04/07/24 12:00 Blood Pressure 127/59 04/07/24 12:00 O2 Sat by Pulse Oximetry 96 04/07/24 12:00 Intake & Output: Intake & Output 04/05/24 04/06/24 04/07/24 04/08/24 11:59 11:59 11:59 11:59 Intake Total 120 Balance 120 Weight 109.5 kg - Lab Result Diagrams: 04/06/24 22:05 04/07/24 05:05 Lab Results-Last 24 Hrs: Lab Results-Last 24 Hours 04/06/24 04/06/24 04/06/24 Range/Units 22:05 22:05 22:05 WBC 6.2 (3.98-10.04) x10^3/uL RBC 4.32 (3.93-5.22) x10^6/uL Hgb 12.9 (11.2-15.7) g/dL Hct 38.7 (34.1-44.9) % MCV 89.6 (79.4-94.8) fL MCH 29.9 (25.6-32.2) pg MCHC 33.3 (32.2-35.5) g/dL RDW 13.1 (11.7-14.4) % Plt Count 164 L (182-369) x10^3/uL MPV 10.8 (9.4-12.3) fL Gran % 61.0 (34.0-71.1) % Immature Gran % (Auto) 0.2 (0.001-0.429) % Nucleat RBC Rel Count 0.0 (0.00-0.2) % Eos # (Auto) 0.15 (0.04-0.36) x10^3/uL Immature Gran # (Auto) 0.01 (0.001-0.031) x10^3u/L Absolute Lymphs (auto) 1.74 (1.18-3.74) x10^3/uL Absolute Monos (auto) 0.50 (0.24-0.86) x10^3/uL Absolute Nucleated RBC 0.00 (0.00-0.012) x10^3u/L Lymphocytes % 27.9 (19.3-51.7) % Monocytes % 8.0 (4.7-12.5) % Eosinophils % 2.4 (0.7-5.8) % Basophils % 0.5 (0.1-1.2) % Absolute Granulocytes 3.81 (1.56-6.13) x10^3/uL Basophils # 0.03 (0.01-0.08) x10^3/uL D-Dimer 0.51 H (0.0-0.50) mg/L Sodium 139 (135-145) mmol/L Potassium 4.0 (3.5-5.1) mmol/L Chloride 105 (98-107) mmol/L Carbon Dioxide 26 (22-30) mmol/L Anion Gap 11.2 (5-15) MEQ/L BUN 26 H (7-17) mg/dL Creatinine 1.01 (0.52-1.04) mg/dL Estimated GFR 59.9 ML/MIN Glucose 104 (74-106) mg/dL POC Glucometer (74 to 106) mg/dL Hemoglobin A1c (4.5-6.0) % Calcium 9.0 (8.4-10.2) mg/dL Total Bilirubin 0.50 (0.2-1.3) mg/dL AST 28 (14-36) U/L ALT 24 (0-35) U/L Alkaline Phosphatase 109 (38-126) U/L Troponin I (0.000-0.033) ng/mL NT-Pro-B Natriuret Pep 140 (<300) pg/mL Serum Total Protein 6.8 (6.3-8.2) g/dL Albumin 3.9 (3.5-5.0) g/dL Triglycerides (30-150) mg/dL Cholesterol (50-200) mg/dL LDL Cholesterol (30-100) mg/dL HDL Cholesterol (40-60) mg/dL Heart Disease Risk Ratio 04/06/24 04/07/24 04/07/24 Range/Units 22:05 00:40 05:05 WBC (3.98-10.04) x10^3/uL RBC (3.93-5.22) x10^6/uL Hgb (11.2-15.7) g/dL Hct (34.1-44.9) % MCV (79.4-94.8) fL MCH (25.6-32.2) pg MCHC (32.2-35.5) g/dL RDW (11.7-14.4) % Plt Count (182-369) x10^3/uL MPV (9.4-12.3) fL Gran % (34.0-71.1) % Immature Gran % (Auto) (0.001-0.429) % Nucleat RBC Rel Count (0.00-0.2) % Eos # (Auto) (0.04-0.36) x10^3/uL Immature Gran # (Auto) (0.001-0.031) x10^3u/L Absolute Lymphs (auto) (1.18-3.74) x10^3/uL Absolute Monos (auto) (0.24-0.86) x10^3/uL Absolute Nucleated RBC (0.00-0.012) x10^3u/L Lymphocytes % (19.3-51.7) % Monocytes % (4.7-12.5) % Eosinophils % (0.7-5.8) % Basophils % (0.1-1.2) % Absolute Granulocytes (1.56-6.13) x10^3/uL Basophils # (0.01-0.08) x10^3/uL D-Dimer (0.0-0.50) mg/L Sodium (135-145) mmol/L Potassium (3.5-5.1) mmol/L Chloride (98-107) mmol/L Carbon Dioxide (22-30) mmol/L Anion Gap (5-15) MEQ/L BUN (7-17) mg/dL Creatinine (0.52-1.04) mg/dL Estimated GFR ML/MIN Glucose (74-106) mg/dL POC Glucometer (74 to 106) mg/dL Hemoglobin A1c (4.5-6.0) % Calcium (8.4-10.2) mg/dL Total Bilirubin (0.2-1.3) mg/dL AST (14-36) U/L ALT (0-35) U/L Alkaline Phosphatase (38-126) U/L Troponin I < 0.012 < 0.012 < 0.012 (0.000-0.033) ng/mL NT-Pro-B Natriuret Pep (<300) pg/mL Serum Total Protein (6.3-8.2) g/dL Albumin (3.5-5.0) g/dL Triglycerides (30-150) mg/dL Cholesterol (50-200) mg/dL LDL Cholesterol (30-100) mg/dL HDL Cholesterol (40-60) mg/dL Heart Disease Risk Ratio 04/07/24 04/07/24 04/07/24 Range/Units 05:05 05:05 07:25 WBC (3.98-10.04) x10^3/uL RBC (3.93-5.22) x10^6/uL Hgb (11.2-15.7) g/dL Hct (34.1-44.9) % MCV (79.4-94.8) fL MCH (25.6-32.2) pg MCHC (32.2-35.5) g/dL RDW (11.7-14.4) % Plt Count (182-369) x10^3/uL MPV (9.4-12.3) fL Gran % (34.0-71.1) % Immature Gran % (Auto) (0.001-0.429) % Nucleat RBC Rel Count (0.00-0.2) % Eos # (Auto) (0.04-0.36) x10^3/uL Immature Gran # (Auto) (0.001-0.031) x10^3u/L Absolute Lymphs (auto) (1.18-3.74) x10^3/uL Absolute Monos (auto) (0.24-0.86) x10^3/uL Absolute Nucleated RBC (0.00-0.012) x10^3u/L Lymphocytes % (19.3-51.7) % Monocytes % (4.7-12.5) % Eosinophils % (0.7-5.8) % Basophils % (0.1-1.2) % Absolute Granulocytes (1.56-6.13) x10^3/uL Basophils # (0.01-0.08) x10^3/uL D-Dimer (0.0-0.50) mg/L Sodium 140 (135-145) mmol/L Potassium 3.5 (3.5-5.1) mmol/L Chloride 107 (98-107) mmol/L Carbon Dioxide 26 (22-30) mmol/L Anion Gap 11.0 (5-15) MEQ/L BUN 22 H (7-17) mg/dL Creatinine 0.77 (0.52-1.04) mg/dL Estimated GFR 82.9 ML/MIN Glucose 99 (74-106) mg/dL POC Glucometer 83 (74 to 106) mg/dL Hemoglobin A1c 5.30 (4.5-6.0) % Calcium 9.0 (8.4-10.2) mg/dL Total Bilirubin (0.2-1.3) mg/dL AST (14-36) U/L ALT (0-35) U/L Alkaline Phosphatase (38-126) U/L Troponin I (0.000-0.033) ng/mL NT-Pro-B Natriuret Pep 156 (<300) pg/mL Serum Total Protein (6.3-8.2) g/dL Albumin (3.5-5.0) g/dL Triglycerides 52 (30-150) mg/dL Cholesterol 135 (50-200) mg/dL LDL Cholesterol 62 (30-100) mg/dL HDL Cholesterol 51 (40-60) mg/dL Heart Disease Risk Ratio 3.0 04/07/24 Range/Units 12:06 WBC (3.98-10.04) x10^3/uL RBC (3.93-5.22) x10^6/uL Hgb (11.2-15.7) g/dL Hct (34.1-44.9) % MCV (79.4-94.8) fL MCH (25.6-32.2) pg MCHC (32.2-35.5) g/dL RDW (11.7-14.4) % Plt Count (182-369) x10^3/uL MPV (9.4-12.3) fL Gran % (34.0-71.1) % Immature Gran % (Auto) (0.001-0.429) % Nucleat RBC Rel Count (0.00-0.2) % Eos # (Auto) (0.04-0.36) x10^3/uL Immature Gran # (Auto) (0.001-0.031) x10^3u/L Absolute Lymphs (auto) (1.18-3.74) x10^3/uL Absolute Monos (auto) (0.24-0.86) x10^3/uL Absolute Nucleated RBC (0.00-0.012) x10^3u/L Lymphocytes % (19.3-51.7) % Monocytes % (4.7-12.5) % Eosinophils % (0.7-5.8) % Basophils % (0.1-1.2) % Absolute Granulocytes (1.56-6.13) x10^3/uL Basophils # (0.01-0.08) x10^3/uL D-Dimer (0.0-0.50) mg/L Sodium (135-145) mmol/L Potassium (3.5-5.1) mmol/L Chloride (98-107) mmol/L Carbon Dioxide (22-30) mmol/L Anion Gap (5-15) MEQ/L BUN (7-17) mg/dL Creatinine (0.52-1.04) mg/dL Estimated GFR ML/MIN Glucose (74-106) mg/dL POC Glucometer 106 (74 to 106) mg/dL Hemoglobin A1c (4.5-6.0) % Calcium (8.4-10.2) mg/dL Total Bilirubin (0.2-1.3) mg/dL AST (14-36) U/L ALT (0-35) U/L Alkaline Phosphatase (38-126) U/L Troponin I (0.000-0.033) ng/mL NT-Pro-B Natriuret Pep (<300) pg/mL Serum Total Protein (6.3-8.2) g/dL Albumin (3.5-5.0) g/dL Triglycerides (30-150) mg/dL Cholesterol (50-200) mg/dL LDL Cholesterol (30-100) mg/dL HDL Cholesterol (40-60) mg/dL Heart Disease Risk Ratio Micro Results-Entire Visit: Accuchecks Date 04/07/24 Date 04/07/24 Time 12:35 Time 07:43 - Radiology Exams Ordered Rad Exams-Entire Visit: Radiology Procedures Category Date Time Status CHEST 1 VIEW (PORTABLE) Stat Exams 04/06/24 23:08 Completed ECHO W/2D AND DOPPLER [US] Routine Exams 04/07/24 07:21 Taken Discharge Exam General Appearance: no apparent distress, alert Neurologic Exam: alert, oriented x 3, cooperative, normal mood/affect, nml cerebellar function, sensation nml, No motor deficits Eye Exam: PERRL, EOMI, eyes nml inspection Ears, Nose, Throat Exam: normal ENT inspection, pharynx normal, moist mucous membranes Neck Exam: normal inspection, non-tender, supple, full range of motion Respiratory Exam: normal breath sounds, lungs clear, No respiratory distress Cardiovascular Exam: regular rate/rhythm, normal heart sounds, edema (+1 BLLE) Gastrointestinal/Abdomen Exam: soft, No tenderness, No mass Pelvic Exam: deferred Rectal Exam: deferred Back Exam: normal inspection, normal range of motion, No CVA tenderness, No vertebral tenderness Extremity Exam: normal inspection, normal range of motion Skin Exam: normal color, warm, dry Final Diagnosis/Problem List - Final Discharge Diagnosis/Problem (1) Chest pain Current Visit: Yes Status: Acute Assessment & Plan: most likely secondary to musculoskeletal pain, based on reproducibility of the pain with palpation of the anterior chest wall. Although she has what appears to be pain worse with activity and relieved by rest, this would also be consistent with increased motion and activity as well as weight on the upper torso, worsening a chest wall strain pain. Patient does have multiple risk factors including her diabetes, hypertension, age, and family history, so warrants evaluation. However, initial EKG and troponin are normal. Will place in observation and monitor on telemetry overnight serial troponins negative x3 If no other findings, can recommend discharge home with for pain and inflammation control - EKG - Tele - CXR - CBC, CMP reviewed Code(s): R07.9 - CHEST PAIN, UNSPECIFIED (2) Left bundle branch block Current Visit: Yes Status: Chronic Assessment & Plan: - Chronic - EKG - Tele - F/u OP with cardiology - Echo- pending reading - Previous Echo EJ 50% - Follows Dr. Sykes Code(s): I44.7 - LEFT BUNDLE-BRANCH BLOCK, UNSPECIFIED (3) History of atrial fibrillation Current Visit: Yes Status: Chronic Assessment & Plan: - Continue Eliquis Continue Coreg 3.125 BID Code(s): Z86.79 - PERSONAL HISTORY OF OTHER DISEASES OF THE CIRCULATORY SYSTEM (4) Obesity, morbid, BMI 40.0-49.9 Current Visit: Yes Status: Chronic Assessment & Plan: - advised heart healthy diet and exercise control per cardiology recs Code(s): E66.01 - MORBID (SEVERE) OBESITY DUE TO EXCESS CALORIES (5) HTN (hypertension) Current Visit: Yes Status: Chronic Assessment & Plan: blood pressure currently well-controlled. Continue home losartan/HCTZ and Coreg Code(s): I10 - ESSENTIAL (PRIMARY) HYPERTENSION (6) Type II diabetes mellitus Current Visit: Yes Status: Chronic Assessment & Plan: currently only on Ozempic. Place on low-dose sliding scale insulin, accuchecks ac/hs Diabetic diet - Discharge Discharge Date: 04/07/24 Disposition: Home, Self-Care Condition: Stable Prescriptions: Continue Losartan/Hydrochlorothiazide [Losartan-Hctz 50-12.5 mg Tab] 1 each PO DAILY Apixaban [Eliquis] 1 tab PO BID Carvedilol 3.125 mg [Coreg 3.125 MG] 1 tab PO BID Semaglutide [Ozempic] 0.5 mg SQ WEEKLY Furosemide 20 mg [Lasix 20 mg] 20 mg PO DAILY Potassium Chloride 10 meq PO QAM Follow up with: SOLO SYKES [CONSULTING PHYSICIAN] - 04/17/24 2:15 pm ([facility]) EILEEN HASSAN MD [Primary Care Provider] - 04/19/24 10:45 am
== END 2024-04-07 15:48 | disposition home or self-care (01) ==
LOC: ED 21:43 → MED SURG 04-07 01:42
PROVIDERS: ADMIT Internal Medicine; ATTEND Internal Medicine
DX: R07.9 Chest pain, unspecified (principal); I44.7 Left bundle-branch block, unspecified; I48.91 Unspecified atrial fibrillation; Z79.01 Long term (current) use of anticoagulants; I10 Essential (primary) hypertension; E78.5 Hyperlipidemia, unspecified; E11.9 Type 2 diabetes mellitus without complications; E66.01 Morbid (severe) obesity due to excess calories; Z79.899 Other long term (current) drug therapy; Z86.79 Personal history of other diseases of the circulatory system
CPT/HCPCS: 36000; 36415; 71045; 80048; 80053; 80061; 82947; 83036; 83721; 83880; 84484; 85025; 85379; 93005; 93041; 93306; 94760; 99285; Q3014; 93268; J1940; A9270-GY; G0378

== ENCOUNTER 2025-04-13 08:00 | Emergency (ER) | payer MEDICARE ==
--- NOTE | 2025-04-13 08:07 | ERPHSYRPT ---
- History of Present Illness Time Seen by Provider: 04/13/25 08:06 Source: patient Exam Limitations: no limitations Physician History: This is an overweight 69-year-old white female patient arrives via private vehicle and is a patient of Dr. Hassan. Patient states that for few days she has had back pain on the right side of her back without any history of fall or trauma. 2 days ago she started coughing. She has had similar symptoms in the past which ended up being a pneumonia. Patient is allergic to penicillin. Patient states that she cannot take a Z-Sandeep. She does not want any narcotic medication. She does not want prednisone or any other type of steroids. Patient has not measured a fever. She does not have chest pain. She has no nausea vomiting or diarrhea symptoms. Patient has history of hypertension, thyroid issues, diabetes and is on Eliquis. Timing/Duration: day(s) (3 days ago patient had right side chest level back pain. 2 days ago she started coughing) Severity: mild (To moderate) Associated Symptoms: cough, No shortness of breath, No chest pain Allergies/Adverse Reactions: lisinopril Allergy (Mild, Verified 04/13/25 08:24) Penicillins Allergy (Mild, Verified 04/13/25 08:24) Rash metformin Adverse Reaction (Verified 04/13/25 08:24) Diarrhea Home Medications: Losartan/Hydrochlorothiazide [Losartan-Hctz 50-12.5 mg Tab] 1 each PO DAILY 11/22/19 [History] Apixaban [Eliquis] 1 tab PO BID 02/23/24 [History] Carvedilol 3.125 mg [Coreg 3.125 MG] 1 tab PO DAILY 02/23/24 [History] Semaglutide [Ozempic] 0.5 mg SQ WEEKLY 04/06/24 [History] Furosemide 20 mg [Lasix 20 mg] 20 mg PO DAILY 04/07/24 [History] Potassium Chloride 10 meq PO QAM 04/07/24 [History] propylthiouraciL [Propylthiouracil] 50 mg PO BID 04/13/25 [History] Hx Tetanus, Diphtheria Vaccination/Date Given: No Hx Influenza Vaccination/Date Given: No Hx Pneumococcal Vaccination/Date Given: No Travel Risk - International Travel Have you traveled outside of the country in past 3 weeks: No - Emerging Infectious Disease Are you exhibiting symptoms associated with any current EIDs: No - Review of Systems Constitutional: No Symptoms Eyes: No Symptoms Ears, Nose, & Throat: No Symptoms Respiratory: Cough, No Dyspnea Cardiac: No Chest Pain Abdominal/Gastrointestinal: No Symptoms Genitourinary Symptoms: No Symptoms Musculoskeletal: Back Pain (Right side chest level), No Fall, No Injury Skin: No Symptoms Neurological: No Symptoms Psychological: No Symptoms Endocrine: No Symptoms Hematologic/Lymphatic: No Symptoms Immunological/Allergic: No Symptoms All Other Systems: Reviewed and Negative - Past Medical History Pertinent Past Medical History: Yes Neurological History: No Pertinent History ENT History: No Pertinent History Cardiac History: High Cholesterol, Hypertension Respiratory History: No Pertinent History Endocrine Medical History: Diabetes Type II, Other Musculoskeletal History: No Pertinent History GI Medical History: Hernia History: No Pertinent History Psycho-Social History: No Pertinent History Female Reproductive Disorders: No Pertinent History Other Medical History: 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 Pt states she is "prediabetic" states a hx of GERD but currently doesn't have any difficulty and not taking any medications. - Past Surgical History Past Surgical History: Yes Neuro Surgical History: No Pertinent History Cardiac: No Pertinent History Respiratory: No Pertinent History Gastrointestinal: No Pertinent History Genitourinary: No Pertinent History Musculoskeletal: Orthopedic Surgery, Other Female Surgical History: Hysterectomy, Tubal Ligation Other Surgical History: states she has had "fatty tumors" removed from neck and back. Right foot surgery. Right side breast biopsy AUGUST 2019. Significant Family History: heart disease (Brother [place] at age 50, mother at age 62) - Social History Smoking Status: Former smoker Exposure to second hand smoke: No Drug Use: none - Social Determinants of Health Will the patient participate in the screening: Declined to provide Do you worry about a steady place to live?: No In the past 12 months,have you had to go without utilities?: No Transportation Issues: No Has anyone in your support network made you feel unsafe?: No Have you or anyone in your house had to go w/o enough food: No - Nursing Vital Signs Nursing Vital Signs: Initial Vital Signs Temperature 97.1 F 04/13/25 08:02 Pulse Rate 79 04/13/25 08:02 Respiratory Rate 18 04/13/25 08:02 Blood Pressure 152/66 04/13/25 08:02 O2 Sat by Pulse Oximetry 94 L 04/13/25 08:02 Pain Scale Pain Intensity 7 - Physical Exam General Appearance: no apparent distress, alert, obese Eye Exam: PERRL/EOMI, eyes nml inspection Ears, Nose, Throat Exam: normal ENT inspection, moist mucous membranes Neck Exam: normal inspection, non-tender, supple, full range of motion Respiratory Exam: normal breath sounds, lungs clear, airway intact, No chest tenderness, No respiratory distress Cardiovascular Exam: regular rate/rhythm, normal heart sounds, normal peripheral pulses Gastrointestinal/Abdomen Exam: soft, normal bowel sounds, No tenderness, No guarding Pelvic Exam: not done Rectal Exam: not done Back Exam: normal inspection, normal range of motion, No CVA tenderness, No vertebral tenderness Extremity Exam: normal inspection, normal range of motion, pelvis stable Neurologic Exam: alert, oriented x 3, cooperative, manager sales support II-XII nml as tested, normal mood/affect, nml cerebellar function, nml station & gait, sensation nml Skin Exam: normal color, warm, dry Lymphatic Exam: No adenopathy SpO2 Interpretation: normal O2 Delivery: Room Air - Course Nursing assessment & vital signs reviewed: Yes Ordered Tests: Active Orders 24 hr Category Date Time Status CHEST 1 VIEW (PORTABLE) Stat Exams 04/13/25 08:23 Taken - Progress Progress: unchanged Progress Note: 04/13/25 08:27 My medical decision making and the assignment of low complexity of this patient's medical issue today is based on review the patient's past medical history, reviewed patient's medication list, reviewed patient drug allergy list, history present illness and physical findings on examination. The workup in this patient includes chest x-ray. Differential diagnosis includes but is not limited to bacterial pneumonia, muscle skeletal pain, rib pain, viral illness 04/13/25 08:43 I interpreted the preliminary chest x-ray report on this patient. Patient is aware this is a preliminary report only. Patient has bilateral perihilar increased bronchovascular markings. There is also a small left pleural effusion. Counseled pt/family regarding: diagnosis, need for follow-up, rad results Medical Desision Making - Diagnostic Testing Diagnostic test were ordered, analyzed, and reviewed by me: Yes Radiological Interpretation: Interpreted by me - Risk of complications Low Risk: Low risk of morbidity from additional dx testing or treatment The pt has a mod risk of morbidity or mortality based on: Need for prescription drug management - Departure Departure Disposition: Home Clinical Impression: Pulmonary infiltrate on chest x-ray Condition: Stable Critical Care Time: No Referrals: EILEEN HASSAN MD [Primary Care Provider, [facility]] - Follow up/PCP as directed Additional Instructions: Take your medications as prescribed. Take your Lasix 20 mg orally twice a day for 2 days. Call your primary care provider today, 04/13/2025, to make arrangements for follow-up appointment for further evaluation and management including evaluation of the lung pleural effusions that are present. Prescriptions: Benzonatate 200 mg PO TID PRN #10 cap PRN Reason: Cough Azithromycin 250 mg [Zithromax 250 MG TABLET] 250 mg PO ZPACK #6 tablet
[2025-04-13 08:23] VITALS: TEMP 97.1
[2025-04-13 08:25] VITALS: O2SAT 96
[2025-04-13 08:49] VITALS: BP 141/66; PULSE 72; RESP 18
--- NOTE | 2025-04-13 09:08 | XRAY ---
Indication: Cough. Comparison: April 06, 2024 Portable chest again demonstrates lingula consolidating infiltrate versus atelectasis. Remaining heart and lungs unremarkable. Bony thorax intact again with osteopenia and minimal degenerative changes.
== END 2025-04-13 09:21 | disposition home or self-care (01) ==
LOC: ED 08:00
DX: R91.8 Other nonspecific abnormal finding of lung field (principal); R05.1 Acute cough; M54.9 Dorsalgia, unspecified; I10 Essential (primary) hypertension; E11.9 Type 2 diabetes mellitus without complications; Z79.01 Long term (current) use of anticoagulants; Z79.85 Long-term (current) use of injectable non-insulin antidiabetic drugs; Z79.899 Other long term (current) drug therapy